=== PATIENT | male | born 1950 | race African-American/Black ===

== ENCOUNTER → 2020-05-15 | Day surgery (SDC) | payer MEDICARE ==
[2020-05-10 17:56] LABS: BASOPHILS % 0.4 % (0.0-1.0); EOSINOPHILS # (AUTO) 0.3 (0.0-0.4); EOSINOPHILS % 5.7 % (0.0-6.0); HEMATOCRIT 40.3 % (38.2-49.6); HEMOGLOBIN 12.9 g/dL (14.0-18.0); LYMPHOCYTES # (AUTO) 1.6 (1.0-3.2); LYMPHOCYTES % 35.7 % (18.0-39.1); MEAN CORPUSCULAR HEMOGLOBIN 29.6 pg (28-32); MEAN CORPUSCULAR VOLUME 92.4 fL (81-99); MONOCYTES # (AUTO) 0.3 (0.2-0.8); MONOCYTES % 7.4 % (4.4-11.3); NEUTROPHILS # (AUTO) 2.3 (2.1-6.9); NEUTROPHILS % 50.6 % (38.7-80.0); PLATELET COUNT 190 x10e3/uL (140-360); RED BLOOD COUNT 4.36 x10e6/uL (4.3-5.7); RED CELL DISTRIBUTION WIDTH 16.4 % (11.7-14.4)
--- NOTE | 2020-05-10 18:35 | Diagnostic Imaging Report ---
EXAMINATION: CHEST 2 VIEWS INDICATION: Preoperative evaluation of the lungs. COMPARISON: None FINDINGS: TUBES and LINES: None. LUNGS: Normal lung volumes. Lungs are clear. No consolidations. PLEURA: No pleural effusion or pneumothorax. HEART AND MEDIASTINUM: The cardiomediastinal silhouette is unremarkable. BONES AND SOFT TISSUES: No acute osseous lesion. Soft tissues are unremarkable. UPPER ABDOMEN: No free air under the diaphragm. IMPRESSION: Normal chest radiograph. Signed by: Sirena Muir MD on 05/10/2020 6:32 PM
[~2020-05-15] MED LIST: AMLODIPINE BESY10 MG PO; ASPIRIN81 MG PO; B&O 60MG R/S 60 MG SUPP PR ONE; BENAZEPRIL HCL10 MG PO; BUPIVACAINE HCL 0.5% INJ 30 ML VIAL INJ ONE; CLINDAMYCIN 600MG / 50ML 50 ML IV ONE; DEXAMETHASONE SOD PHOS INJ 4 MG/ML VIAL ONE; EPHEDRINE SULFATE INJ 50 MG/ML VIAL ONE; ETOMIDATE 2 MG/ML 10 ML INJ IV ONE; FENTANYL CITRATE/PF 100MCG/2 ML INJ ONE; FLOMAX0.4 MG PO; FUROSEMIDE INJ 10 MG/ML 4 ML VIAL ONE; GENTAMICIN 80MG/NS 100 ML 200 ML IV ONE; IOPAMIDOL 300MG/ML 50ML INFUS..BTL IV ONE; LIDOCAINE HCL 2% LOCAL INJ 5 ML SDV VIAL INJ ONE; MELOXICAM7.5 MG PO; MORPHINE SULFATE INJ 4 MG/ML INJ 1ML ONE; OMEPRAZOLE40 MG PO; ONDANSETRON HCL INJ 2MG/ML 2ML 2 MG/ML VIAL ONE; PIPER-TAZ 3.375 GM 50 ML ONE; PROPOFOL IV EMULSION 10 MG/ML 20 ML VIAL ONE; SEVOFLURANE INHAL SOLN 250 ML PEN BTL ONE
[2020-05-15 16:45] VITALS: BP 131/85
--- NOTE | 2020-06-03 09:47 | Operative Report ---
DATE OF PROCEDURE: 05/15/2020 SURGEON: Santino Zhou MD PREOPERATIVE DIAGNOSES: 1. Elevated PSA. 2. Obstructive benign prostatic hyperplasia. 3. Right hydrocele. POSTOPERATIVE DIAGNOSES: 1. Elevated PSA. 2. Obstructive benign prostatic hyperplasia. 3. Right hydrocele. OPERATIONS PERFORMED: 1. Transrectal sonography interpretation. 2. Interpretation for ultrasonographic guidance for needle biopsies. 3. Transrectal needle biopsies of the prostate (separate procedure performed for the elevated PSA). 4. Cystourethroscopy with left ureteral catheterization and partial retrograde ureteropyelography. 5. Inability to find right ureteral orifice. 6. Interpretation of retrograde ureteropyelography. 7. Supervision of fluoroscopy, no radiologist present. 8. Excision of large right hydrocele (separate procedure performed for the hydrocele). 9. Regional nerve block (separate procedure performed for postoperative pain control and not required for the actual performance of the surgery done under general anesthesia). ANESTHESIA: General. COMPLICATIONS: None. CLINICAL SUMMARY: Stephen Bishop is a 69-year-old man with the above preoperative diagnoses. He is brought for the above procedures. He is aware of the risks of bleeding, infection, injury to adjacent structures, need for additional procedures and elected to proceed. OPERATIVE PROCEDURE IN DETAIL: Informed consent was verified. Stephen Bishop was properly identified, taken to the operating room, placed on the operating table in supine position. Anesthesia was uneventfully begun. The patient was then carefully and gently repositioned in dorsal lithotomy position with all pressure points well padded. Transrectal sonography was performed. Interpretation of prostate ultrasound; prostate volume was measured at 140 mL. There was an obvious median lobe. There were some calcifications in the junction between the peripheral zone and transition zone. Seminal vesicles were unremarkable. The prostate capsule was smooth. With ultrasonographic guidance, needle biopsies of the prostate were taken. Biopsies were taken at [address] and sent in 6 different specimen cups. They were differentiated right versus left and base versus mid versus apex. Once this was performed, the patient's genitalia were prepared and draped in usual sterile fashion. Cystoscope sheath with the visual obturator in place was atraumatically inserted. The patient's urethra was guided unremarkable distal urethra through normal sphincteric region through the prostate bed, which was significant for kissing lateral lobes with a huge intravesical median lobe. Panendoscopy of the bladder revealed trabeculations and I found the left ureteral orifice. We cannulated and performed partial retrograde pyelograms. We could not find the right ureteral orifice as both ureteral orifices were being obstructed by this massive median lobe, which was acting like a tumor within the bladder. The patient's bladder was drained and cystoscope was withdrawn. The patient was then repositioned in supine position. His genitalia were prepared and draped in usual sterile fashion. A right scrotal incision was made and carried through all layers of the scrotum until we reached the tunica vaginalis. Once the tunica vaginalis was isolated, it was delivered. This was a very large hydrocele. We initially thought the patient had 2 right spermatoceles and the right hydrocele as well as a left varicocele based on ultrasonography. Operatively, we found one large multiloculated right hydrocele. No spermatoceles were identified. We incised the hydrocele anteriorly and then we resected the hydrocele sac. We everted the remnants of the sac and approximated them behind the epididymis. Marcaine with epinephrine was utilized to infiltrate the spermatic cord and performing a cord block. This was done for postoperative pain control and not required for the actual performance of the surgery, which was done under general anesthesia. Copious irrigation was performed and verified hemostasis. We placed a Energy drain through the dependent most portion of the hemiscrotum and secured to the skin with a chromic suture. The testis was placed back in its normal anatomical position. Marcaine was infiltrated around the incision. The patient's incision was then approximated in 2 layers utilizing running chromic suture. Excellent cosmetic result was achieved and a dramatic decompression of the right hemiscrotum was achieved as well. A belladonna and opium suppository were placed revealing a 50 g prostate, smooth, nonfluctuant without any nodules. There were no complications to the procedure. He tolerated the procedure well. Plan will be to follow the patient up to remove his drain and discuss the operative findings. The patient needs to have at least a stage 1, possibly a 2-stage transurethral resection of the prostate. We need to eliminate this massive median lobe acting like a tumor within the bladder. At that point, once we eliminate the median lobe, we would have a chance of performing proper retrograde pyelograms as we needed to do. Santino MD MARIANELA Zhou/EVERETTE /[id number]
== END | disposition home or self-care (01) ==
LOC: OR 08:20
PROVIDERS: ATTEND Urology
DX: N43.3 Hydrocele, unspecified (principal); I10 Essential (primary) hypertension; Z88.8 Allergy status to other drugs, medicaments and biological substances; Z79.82 Long term (current) use of aspirin; N40.1 Benign prostatic hyperplasia with lower urinary tract symptoms; N13.8 Other obstructive and reflux uropathy; Z01.810 Encounter for preprocedural cardiovascular examination; Z01.812 Encounter for preprocedural laboratory examination; Z01.818 Encounter for other preprocedural examination; Z11.59 Encounter for screening for other viral diseases
CPT/HCPCS: 36415; 52005; 55040; 55700; 71046; 74430; 76872; 76942; 85025; 88304; 88305; 93005; C1758; C1769; J1100; J1580; J1940; J2001; J2270; J2405; J2543; J2704; J3010; Q9967; U0002; 76998

== ENCOUNTER 2020-09-19 15:04 | Emergency (ER) | payer MEDICARE ==
[~2020-09-19] VITALS: Ht 175.3 cm; Wt 92.5 kg
[~2020-09-19 15:04] MED LIST changes: -B&O 60MG R/S 60 MG SUPP PR ONE; -BUPIVACAINE HCL 0.5% INJ 30 ML VIAL INJ ONE; -CLINDAMYCIN 600MG / 50ML 50 ML IV ONE; -DEXAMETHASONE SOD PHOS INJ 4 MG/ML VIAL ONE; -EPHEDRINE SULFATE INJ 50 MG/ML VIAL ONE; -ETOMIDATE 2 MG/ML 10 ML INJ IV ONE; -FENTANYL CITRATE/PF 100MCG/2 ML INJ ONE; -FUROSEMIDE INJ 10 MG/ML 4 ML VIAL ONE; -GENTAMICIN 80MG/NS 100 ML 200 ML IV ONE; -IOPAMIDOL 300MG/ML 50ML INFUS..BTL IV ONE; -LIDOCAINE HCL 2% LOCAL INJ 5 ML SDV VIAL INJ ONE; -MORPHINE SULFATE INJ 4 MG/ML INJ 1ML ONE; -ONDANSETRON HCL INJ 2MG/ML 2ML 2 MG/ML VIAL ONE; -PIPER-TAZ 3.375 GM 50 ML ONE; -PROPOFOL IV EMULSION 10 MG/ML 20 ML VIAL ONE; -SEVOFLURANE INHAL SOLN 250 ML PEN BTL ONE
--- NOTE | 2020-09-19 15:58 | Emergency Department Note ---
History of Present Illnes History of Present Illness Chief Complaint: General Medicine Complaints History of Present Illness This is a 70 year old male Chief Complaint Comment Patient in from Dr. Zhou's office via EMS with reports of hematuria and a near syncopal episode. Patient reports that he has been noticing some blood in his urine that started 3 days ago but got progressively worse so he made the appointment with Dr. Zhou. In the office, a madison catheter was placed and upon irrigation of the madison the patient started to pass out. Dr. Zhou reported it is a vasovagal response. Patient is alert and oriented in triage with no further complaints of dizziness. Patient is not in any obvious distress. Historian: Patient, Bike Technician/EMS Arrival Mode: [place] Required: No Onset (how long ago): hour(s) Location: None Quality: Near syncope Radiation: Reports non-radiation Severity: mild Onset quality: sudden Duration (how long): hour(s) (Seconds) Timing of current episode: rare Progression: resolved Chronicity: new Context: Reports recent surgery; Denies recent illness Relieving factors: none Exacerbating factors: none Associated symptoms: Reports denies other symptoms Treatments prior to arrival: none Past Medical/Family History Physician Review I have reviewed the patient's past medical and family history. Any updates have been documented here. Past Medical History Recent Fever: No Clinical Suspicion of Infectio: No New/Unexplained Change in Ment: No Past Medical History: Hypertension Other Medical History: BPH Past Surgical History: Back Surgery Other Surgery: 2nd finger on left hand TURP Social History Smoking Cessation: Never Smoker Counseling Performed: No Alcohol Use: Occasional Any Illegal Drug Use: No Other Any Pre-Existing Lines (PICC,: No Review of Systems Review of Systems Constitutional: Reports no symptoms EENTM: Reports no symptoms Cardiovascular: Reports no symptoms Respiratory: Reports no symptoms Gastrointestinal: Reports no symptoms Genitourinary: Reports hematuria Musculoskeletal: Reports no symptoms Integumentary: Reports no symptoms Neurological: Reports as per HPI Psychological: Reports no symptoms Endocrine: Reports no symptoms Hematological/Lymphatic: Reports no symptoms Physical Exam Related Data Allergies: Coded Allergies: iodine (Verified Allergy, Unknown, HIVES, 05/15/20) Triage Vital Signs Vital Signs Date Time Temp Pulse Resp B/P (MAP) Pulse Ox O2 Delivery O2 Flow Rate FiO2 09/19/20 15:29 98.9 75 17 145/74 100 Room Air Vital signs reviewed: Yes Physical Exam CONSTITUTIONAL Constitutional: Present well-developed, Present well-nourished HENT HENT: Present normocephalic, Present atraumatic, Present oropharynx clear/moist, Present nose normal HENT L/R: Present left ext ear normal, Present right ext ear normal EYES Eyes: Reports PERRL, Reports conjunctivae normal NECK Neck: Present ROM normal PULMONARY Pulmonary: Present effort normal, Present breath sounds normal CARDIOVASCULAR Cardiovascular: Present regular rhythm, Present heart sounds normal, Present capillary refill normal, Present normal rate GASTROINTESTINAL Abdominal: Present soft, Present nontender, Present bowel sounds normal GENITOURINARY Genitourinary: Present other (Madison in place, flowing with out difficulty. Blood tinged urine) SKIN Skin: Present warm, Present dry MUSCULOSKELETAL Musculoskeletal: Present ROM normal NEUROLOGICAL Neurological: Present alert, Present oriented x 3, Present no gross motor or sensory deficits PSYCHOLOGICAL Psychological: Present mood/affect normal, Present judgement normal Results Laboratory Lab results reviewed: Yes Procedures 12 Lead ECG Interpretation ECG Interpretation : [place] Peeler: Interpreted by ED physician Rhythm: sinus rhythm Rate: normal QRS axis: normal ST segments normal: Yes T waves normal: Yes Clinical Impression: non-specific ECG Assessment & Plan Medical Decision Making MDM 70 y.o M presents for syncopal episode at Dr. Zhou's office while irrigating bladder. Patient has no complaints at this time. EKG benign, CBC shows mild anemia but need for transfusion. Floey is flowing with out difficulty. Patient wishes to leave. Doubt emergent process. He will f/u w/ Dr. Zhou and he is appropriate for DC. Diagnosis favors vasovagal syncope from bladder irrigation. Assessment & Plan Final Impression: (1) Vasovagal syncope Depart Disposition: HOME, SELF-CARE Last Vital Signs Date Time Temp Pulse Resp B/P (MAP) Pulse Ox O2 Delivery O2 Flow Rate FiO2 09/19/20 15:29 98.9 75 17 145/74 100 Room Air Home Meds Reported Medications Tamsulosin Hcl* (FLOMAX*) 0.4 Mg Cap, 0.4 MG PO DAILY@1700, #30 CAP 05/13/20 Omeprazole (OMEPRAZOLE) 40 Mg Capsule., PO DAILY 05/13/20 Meloxicam (MELOXICAM) 7.5 Mg Tablet, 15 MG PO DAILY, #30 TAB 05/13/20 Benazepril Hcl (BENAZEPRIL HCL) 10 Mg Tablet, 20 MG PO DAILY, #30 TAB 05/13/20 Amlodipine Besylate (AMLODIPINE BESYLATE) 10 Mg Tablet, 10 MG PO DAILY, #30 TAB 05/13/20 Aspirin (ASPIRIN) 81 Mg Tab.chew, 81 MG PO DAILY 05/13/20 EL GEE MD Sep 19, 2020 15:58
--- OUTSIDE RECORDS SUMMARY | 2020-09-19 16:07 | XMS REPORT | Clinical Summary ---
Author Author [facility] Address Unknown Phone Unavailable Care Team Providers Care Dinkey Mechanic Name Role Phone PCP Unavailable Allergies No Known Allergies Medications End Date Status Medication Sig Dispensed Refills Start Date Active hydrochlorothiazide Take by mouth 0 (MICROZIDE) 12.5 mg daily. capsule Active verapamil (CALAN-SR) 240 Take 240 mg 0 MG CR tablet by mouth every morning . Active oxybutynin (DITROPAN) 5 Take 1 tablet 90 tablet 0 MG tablet (5 mg total) 0 by mouth 3 (three) times daily For bladder spasms. Active polyethylene glycol Take 17 g by 14 each 0 06/12 (GLYCOLAX) 17 gram packet mouth daily 0 as needed (Constipation ). Active HYDROcodone-acetaminophen Take 1 tablet 12 tablet 0 (NORCO 5-325) 5-325 mg by mouth 0 per tablet every 4 (four) hours as needed for Pain. Max Daily Amount: 6 tablets Active Problems Problem Noted Date Hematuria, unspecified type 06/10/2020 Rectal bleeding 08/12/2013 Encounters Care Team Description Date Type Specialty Juan Carlos Botello MD Adio, Titilola R., MD Lin, Fang-Ying, MD Hematuria, unspecified type (Primary Dx) ; Urinary tract infection with hematuria, site unspecified; Benign prostatic hyperplasia with lower urinary tract symptoms, symptom details unspecified; Essential hypertension 06/10/2020 [facility] Internal Nv dicine - Encounter 06/12/2020 06/10/2020 Travel after 09/19/2019 Social History Date Tobacco Use Types Packs/Day Years Used Never Smoker Smokeless Tobacco: Never Used Drinks/Week oz/Week Comments Alcohol Use SOCIALLY No Alcohol Habits Answer Date Recorded How often do you have a drink containing alcohol? Never 06/10/2020 How many drinks containing alcohol do you have on No t asked a typical day when you are drinking? How often do you have six or more drinks on one Not asked occasion? Sex Assigned at Date Recorded Not on file Last Filed Vital Signs Reading Time Taken Comments Vital Sign 105/56 06/12/2020 3:06 PM CDT Blood Pressure 65 06/12/2020 3:06 PM CDT Pulse 36.4 C (97.6 F) 06/12/2020 3:06 PM CDT Temperature 20 06/12/2020 3:06 PM CDT Respiratory Rate 98% 06/12/2020 3:06 PM CDT Oxygen Saturation - - Inhaled Oxygen Concentration 87.5 kg (193 lb) 06/12/2020 7:08 PM CDT Weight 175.3 cm (5' 9") 06/10/2020 10:28 AM CDT Height 28.5 06/10/2020 10:28 AM CDT Body Mass Index Plan of Treatment Health Maintenance Due Date Last Done Comments PNEUMOCOCCAL 65+ YRS (1 2014 of 1 - [id number]) INFLUENZA VACCINE (#1) 2020 COLON CANCER SCREENING 08/13/2023 08/13/2013 COLONOSCOPY Procedures Comments Procedure Name Priority Date/Time Associated Diag nosis CBC W/PLT COUNT & AUTO Routine 06/12/2020 DIFFERENTIAL 4:35 AM CDT CBC W/PLT COUNT & AUTO Routine 06/12/2020 DIFFERENTIAL 4:35 AM CDT PHOSPHORUS Routine 06/12/2020 4:35 AM CDT MAGNESIUM Routine 06/12/2020 4:35 AM CDT BASIC METABOLIC PANEL (7) Routine 06/12/2020 4:35 AM CDT TRANSFUSION SERVICE 06/11/2020 REPORT - SCAN 6:12 PM CDT CBC W/PLT COUNT & AUTO Routine 06/11/2020 DIFFERENTIAL 4:25 AM CDT CBC W/PLT COUNT & AUTO Routine 06/11/2020 DIFFERENTIAL 4:25 AM CDT PHOSPHORUS Routine 06/11/2020 4:25 AM CDT MAGNESIUM Routine 06/11/2020 4:25 AM CDT BASIC METABOLIC PANEL (7) Routine 06/11/2020 4:25 AM CDT SARS-COV2/RT-PCR ([facility] & STAT 06/10/2020 REF LABS) 8:[address] ABDOMEN/PELVIS WITH IV STAT 06/10/2020 CONTRAST 12:56 PM CDT COMPREHENSIVE METABOLIC STAT 06/10/2020 PANEL 10:55 AM CDT CBC W/PLT COUNT & AUTO STAT 06/10/2020 DIFFERENTIAL 10:21 AM CDT TYPE AND SCREEN, STAT 06/10/2020 AUTOMATED 10:21 AM CDT CBC W/PLT COUNT & AUTO STAT 06/10/2020 DIFFERENTIAL 10:21 AM CDT URINALYSIS W/ MICROSCOPIC STAT 06/10/2020 9:56 AM CDT URINE CULTURE Routine 06/10/2020 9:56 AM CDT after 09/19/2019 Results * CBC with platelet count + automated diff (06/12/2020 4:35 AM CDT) Only the most recent of 3 results within the time period is included. WBC 6.7 3.5 - 10.5 K/L [facility] RBC 2.76 (L) 4.63 - 6.08 M/L [facility] Hemoglobin 8.5 (L) 13.7 - 17.5 GM/DL [facility] Hematocrit 25.9 (L) 40.1 - 51.0 % [facility] MCV 93.8 (H) 79.0 - 92.2 fL [facility] MCH 30.8 25.7 - 32.2 pg [facility] MCHC 32.8 32.3 - 36.5 GM/DL [facility] RDW 15.9 (H) 11.6 - 14.4 % [facility] Platelets 174 150 - 450 K/CU MM [facility] MPV 9.5 9.4 - 12.4 fL [facility] nRBC 0 0 - 0 /100 WBC [facility] % Neutros 62 % [facility] % Lymphs 22 % [facility] % Monos 10 % [facility] % Eos 5 % [facility] % Baso 0 % [facility] # Neutros 4.19 1.78 - 5.38 K/L [facility] # Lymphs 1.48 1.32 - 3.57 K/L [facility] # Monos 0.65 0.30 - 0.82 K/L [facility] # Eos 0.36 0.04 - 0.54 K/L [facility] # Baso 0.02 0.01 - 0.08 K/L [facility] Immature 0 0 - 1 % [facility] Specimen Blood Performing Organization Address City/[facility] Ph one Number [address] [facility] * Phosphorus (06/12/2020 4:35 AM CDT) Only the most recent of 2 results within the time period is included. Phosphorus 2.7 2.3 - 4.7 mg/dL [facility] Specimen Blood Narrative Performed At [employer] KELSEY Causey [facility] Performing Organization Address City/[facility]/Zipcode Ph one Number [address] [facility] * Magnesium (06/12/2020 4:35 AM CDT) Only the most recent of 2 results within the time period is included. Magnesium 1.7 1.6 - 2.6 mg/dL [facility] Specimen Blood Narrative Performed At [employer] ID - CACHORRO Causey [facility] Performing Organization Address [facility] one [address] [facility] * Basic metabolic panel (06/12/2020 4:35 AM CDT) Only the most recent of 2 results within the time period is included. Sodium 141 136 - 145 meq/L [facility] Potassium 3.9 3.5 - 5.1 meq/L [facility] Chloride 109 (H) 98 - 107 meq/L [facility] CO2 26 22 - 29 meq/L [facility] BUN 15 7 - 21 mg/dL [facility] Creatinine 0.93 0.57 - 1.25 mg/dL [facility] Glucose 95 70 - 105 mg/dL [facility] Calcium 8.6 8.4 - 10.2 mg/dL [facility] EGFR 97Comment: ESTIMATED GFR IS mL/min/1.73 sq m [facility] NOT ACCURATE CREATININE [facility] CLEARANCE IN PREDICTING [facility] CENTER GLOMERULAR FILTRATION RATE. ESTIMATED GFR IS NOT APPLICABLE FOR DIALYSIS PATIENTS. Specimen Blood Narrative Performed At [employer] ID - CACHORRO Causey [facility] Performing Organization Address [facility] one [address] [facility] * TRANSFUSION SERVICE REPORT - SCAN (06/11/2020 6:12 PM CDT) Narrative Performed At This result has an attachment that is n ot available. * SARS-CoV2/RT-PCR (Symptomatic ONLY) (06/10/2020 8:36 PM CDT) SARS-COV2/RT-PC Negative Not Detected, [facility] R Negative, See [facility] external report for [facility] linked test SARS-COV-2 [facility] PERFORMING LAB [facility] Specimen Other - Nasopharyngeal wall structure (body structure) Narrative Performed At Negative results do not preclude SARS-C oV-2 infection and should not be used as [facility] the sole basis for patient management decisions. Nega tive results must be [facility] combined with clinical observations, pa tient history, and epidemiological information. A false negative result ma y occur if a specimen is improperly collected, transported or handled. The limit of detection for this assay i s 250 copies/mL. This SARS CoV-2 test is a rapid, real-t joseph RT-PCR test intended for the qualitative detection of nucleic acid f rom SARS-CoV-2 in a nasopharyngeal swab specimen collected from individuals peña pected of COVID-19 by their healthcare provider. This test has not been Food and Drug Ad ministration (FDA) cleared or approved and has been authorized by FDA under an Emergency Use Authorization (EUA). This EUA will be effective until the declara tion that circumstances exist justifying the authorization of the emergency use of in vitro diagnostic tests for detection and/or diagnosis of COVID-19 is terminated under Section 564(b)(2) of the Act or the EUA is revoked under Sec tion 564(g) of the Act. Fact Sheet for Healthcare Providers: https://www.[employer]/Documents/Xpert%20Xpress%20SARS%20CoV-2/Fact%20Sheets/30 23802%24AYUB-GNT-6%20HEALTHCARE%20PROV IDERS%20FACT%20SHEET.pdf Fact Sheet for Healthcare Patients: https://www.[employer]/Documents/Xpert%20Xpress%20SARS%20CoV-2/Fact%20Sheets/30 2-3801%18WPPG-MRV-7%20PATIENT%20FACT%20 SHEET.pdf Performing Laboratory: [facility] [address] [place] [address] Performing Organization Address City/State/Zipcode Ph one Number [facility] [address] [place], [place] [address] * CT abdomen pelvis with IV contrast (06/10/2020 12:56 PM CDT) Specimen Narrative Performed At FINAL REPORT Halldis CT of the abdomen and pelvis, with cont rast Clinical History: generalized abdomin al pain, hematuria Technique: CT of the abdomen and pelvis is performed with intravenous contrast administration. This exam wa s performed according to our departmental dose optimization program which includes automated exposure control, adjustment of the mA and/or kV according to patient's size and/or use of iterative reconstructive technique. Comparison Film: None Discussion: Visualized lower thorax is unremarkable . There are multiple hypodensities in raul er, of varying sizes, the majority are subcentimeter, likely to r epresent cysts and/or biliary hamartomas. The largest cyst is located at the hepatic dome measuring 2.2 cm. No biliary ductal dilatation. G allbladder is normal. Spleen, pancreas and adrenal glands are normal. There is mild to moderate bilateral hyd ronephrosis and hydroureter. There are a few nonobstructive stones w ithin the left kidney, measuring up to 4 mm. Bladder is distended, and contains inte rnal hyperdensity that likely represents hemorrhage, although an unde rlying lesion cannot be excluded. Prostate gland is markedly en larged. No bowel obstruction, or abnormal bowel wall thickening. Normal appendix. No ascites, free air, or lymphadenopath y. Osseous structures demonstrate degenerative changes. There is severe right hip osteoarthritis. Impression: Markedly distended bladder, containing heterogeneous hyperdensity centrally, likely representing hematoma , note the presence of an underlying mass lesion cannot be exclud ed based on this exam. [id number] bilateral hydronephros is and hydroureter. There are several small nonobstructive stones wit hin the left kidney. Severe right hip osteoarthritis. Signed: Sara Logan MD Report Verified Date/Time: 06/10/2020 13:12:59 Reading Location: [facility] C0X [facility] nsult Reading Room Procedure Note Interface, External Ris In - 06/10/2020 1:15 PM CDT FINAL REPORT CT of the abdomen and pelvis, with contrast Clinical History: generalized abdominal pain, hematuria Technique: CT of the abdomen and pelvis is performed with intravenous contrast administration. This exam was performed according to our departmental dose optimization program which includes automated exposure control, adjustment of the mA and/or kV according to patient's size and/or use of iterative reconstructive technique. Comparison Film: None Discussion: Visualized lower thorax is unremarkable. There are multiple hypodensities in liver, of varying sizes, the majority are subcentimeter, likely to represent cysts and/or biliary hamartomas. The largest cyst is located at the hepatic dome measuring 2.2 cm. No biliary ductal dilatation. Ga llbladder is normal. Spleen, pancreas and adrenal glands are normal. There is mild to moderate bilateral hydronephrosis and hydroureter. There are a few nonobstructive stones within the left kidney, measuring up to 4 mm. Bladder is distended, and contains internal hyperdensity that likely represents hemorrhage, although an underlying lesion cannot be excluded. Prostate gland is markedly enlarged. No bowel obstruction, or abnormal bowel wall thickening. Normal appendix. No ascites, free air, or lymphadenopathy. Osseous structures demonstrate degenerative changes. There is severe right hip osteoarthritis. Impression: Markedly distended bladder, containing heterogeneous hyperdensity centrally, likely representing hematoma, note the presence of an underlying mass lesion cannot be excluded based on this exam. [id number] bilateral hydronephrosis and hydroureter. There are several small nonobstructive stones within the left kidney. Severe right hip osteoarthritis. Signed: Sara Logan MD Report Verified Date/Time: 06/10/2020 13:12:59 Reading Location: [facility] B1 [id number] [facility] Consult Reading Room Performing Organization Address City/State/Zipcode Ph one Number GE RIS * Comprehensive metabolic panel (06/10/2020 10:55 AM CDT) Protein, Total 7.2Comment: Specimen slightly 6.0 - 8.3 gm/dL [facility] Albumin 3.8Comment: Specimen slightly 3.5 - 5.0 g/dL [facility] Alkaline 67 40 - 150 U/L [facility] Total Bilirubin 0.3Comment: Specimen slightly 0.2 - 1.2 mg/dL [facility] Sodium 135 (L) 136 - 145 meq/L [facility] Potassium 4.0Comment: Specimen slightly 3.5 - 5.1 meq/L [facility] Chloride 105 98 - 107 meq/L [facility] CO2 25 22 - 29 meq/L [facility] BUN 21 7 - 21 mg/dL [facility] Creatinine 1.10Comment: Specimen slightly 0.57 - 1.25 mg/ dL [facility] Glucose 130 (H) 70 - 105 mg/dL [facility] Calcium 8.8 8.4 - 10.2 mg/dL [facility] AST 22Comment: Specimen slightly 5 - 34 U/L [facility] ALT 11Comment: Specimen slightly 6 - 55 U/L [facility] EGFR 80Comment: ESTIMATED GFR IS mL/min/1.73 sq m [facility] NOT ACCURATE CREATININE [facility] CLEARANCE IN PREDICTING [facility] CENTER GLOMERULAR FILTRATION RATE. ESTIMATED GFR IS NOT APPLICABLE FOR DIALYSIS PATIENTS. Specimen Blood Narrative Performed At [employer] ID - DB [facility] Performing Organization Address City/[facility] Cent[facility]ode Ph one Number [facility] [address] [place], [place] [address] [facility] * Type and screen, automated ([facility] and [facility] only) (06/10/2020 10:21 AM CDT) ABO/RH O POSITIVE [facility] Ab Scrn NEGATIVE [facility] Specimen Blood Performing Organization Address City/State/Zipcode Ph one Number [facility] [address] [place] [address] [facility] * Urinalysis w/Microscopic (06/10/2020 9:56 AM CDT) Color, UA Dark Red [facility] Clarity, UA Cloudy [facility] Specific 1.031 1.001 - 1.035 [facility] Ransom, [facility] pH, UA 8.0 5.0 - 8.0 [facility] Protein, UA 300 mg/dL (A) Negative [facility] Glucose, UA 100 mg/dL (A) Negative [facility] Ketones, UA 10 mg/dL (A) Negative [facility] Bilirubin, UA Positive (A) Negative [facility] Blood, UA Large (A) Negative [facility] Nitrite, UA Positive (A) Negative [facility] Leukocytes, UA Small (A) Negative [facility] Urobilinogen, 12.0 (H) 0.2 - 1.0 mg/dL [facility] RBC, UA 1,000 /HPF [facility] WBC, UA 0 /HPF [facility] Specimen Source [facility] Specimen Urine Narrative Performed At [employer] [facility] Performing Organization Address City/State/Zipcode Ph one Number [address] [facility] * Urine culture (06/10/2020 9:56 AM CDT) Result No growth [facility] Specimen Urine - Urine specimen collection, clean catch (procedure) Performing Organization Address City/State/[facility] Centercode Ph one Number [facility] [address] [place], [place] [address] [facility] after 09/19/2019 Insurance Type Payer Benefit Subscriber ID Effective Phone Address Plan / Dates Group Maps Contracted [employer] C[employer]NA [id number] 2019-P [employer] karissa [employer] ALL Advance Directives For more information, please contact: [phone] Date Inactivated Comments Code Status Date Activated 06/12/2020 10:08 PM Full Code 06/10/2020 2:48 PM This code status was determined by: Patient 08/14/2013 6:45 PM All possible means of suppor t, including: cardiac massage, mechanical ventilation, and defibrillation will be used to support life. Code ONE 08/12/2013 7:17 AM
--- OUTSIDE RECORDS SUMMARY | 2020-09-19 16:07 | XMS REPORT | Continuity of Care Document ---
Author Author [facility] t Organization [facility] Address [address] [place] [address] Phone Unavailable Care Team Providers [facility] Teacher Name Role Phone GERARDO LINDQUIST Attphys Unavailable Juan Carlos Botello MD Attphys Carol Marina MD Attphys Heather HAYNES, Drake Attphys JUAN CARLOS BOTELLO Attphys Unavailable NERISSA FARLEY Attphys Unavailable GERARDO LINDQUIST Admphys Unavailable Carol MARINA Admphys Unavailable Payers Payer Name Policy Type Policy Number Effective Date Expiration Date Berna [employer] [id number] Cont[facility] [id number] 2019 00:00:00 [facility] Problems Condition Name Condition Details Condition Category Status Onset Date Resolution Date Last Treatment Date Treating Clinician Comments Source Hematuria, unspecified type Hematuria, unspecified type Disease Active 2020-06-10 00:00:00 [facility] Rectal bleeding Rectal bleeding Disease Active 2013-08-12 00:00:00 [facility] Allergies, Adverse Reactions, Alerts Allergy Name Allergy Type Status Severity Reaction(s) Onset Date Inacti ve Date Treating Clinician Comments Source No Known Allergies DA Active U 2018-08-16 00:00:00 [facility] No Known Allergies DA Active U 2018-08-02 00:00:00 [facility] Social History Social Habit Start Date Stop Date Quantity Comments Source History SDOH Alcohol Std Drinks [facility] History SDOH Alcohol Binge [facility] Sex Assigned At [facility] Tobacco use and exposure 2020-06-10 00:00:00 2020-06-10 00:00:00 Neri avila used [facility] Alcohol intake 2020-06-10 00:00:00 2020-06-10 00:00:00 Current non-drinker of alcohol (finding) [facility] Jorje avila History SDOH Alcohol Frequency 2020-06-10 00:00:00 2020-06-10 00:00:0 0 1 [facility] Alcohol Comment 2013-08-12 00:00:00 2013-08-12 00:00:00 SOCIALLY [facility] Smoking Status Start Date Stop Date Source Never smoker [facility] Medications Ordered Medication Name Filled Medication Name Start Date Stop Da te Current Medication? Ordering Clinician Indication Dosage Frequency Signature (SIG) Comments Components Source hydrochlorothiazide (MICROZIDE) 12.5 mg capsule 2020-06-12 20:08 :21 Yes QD Take by mouth daily. [facility] verapamil (CALAN-SR) 240 MG CR tablet 2020-06-12 20:08:21 Y es 240mg QD Take 240 mg by mouth every morning . [facility] oxybutynin (DITROPAN) 5 MG tablet 2020-06-12 00:00:00 Ye s 5mg Q.[id number] Take 1 tablet (5 mg total) by mouth 3 (t hree) times daily For bladder spasms. [facility] polyethylene glycol (GLYCOLAX) 17 gram packet 2020-06-12 00:00:0 0 Yes 17g Take 17 g by mouth daily as needed (Constipation). [facility] HYDROcodone-acetaminophen (NORCO 5-325) 5-325 mg per tablet 2020-06-12 00:00:00 Yes 1{tbl} Take 1 tab let by mouth every 4 (four) hours as needed for Pain. Max Daily Amount: 6 tablets [facility] Vital Signs Vital Name Observation Time Observation Value Comments Source Body weight 2020-06-12 19:08:00 87.544 kg [facility] BMI 2020-06-12 19:08:00 28.50 kg/m2 [facility] Systolic blood pressure 2020-06-12 15:06:00 105 mm[Hg] [facility] Diastolic blood pressure 2020-06-12 15:06:00 56 mm[Hg] [facility] Heart rate 2020-06-12 15:06:00 65 /min [facility] Body temperature 2020-06-12 15:06:00 36.44 Lisa [facility] Respiratory rate 2020-06-12 15:06:00 20 /min [facility] Oxygen saturation in Arterial blood by Pulse oximetry 06-12 15:06:00 98 [facility] 2020-06-10 10:28:00 175.3 cm [facility] Procedures Procedure Date / Time Performed Performing Clinician [facility] e BASIC METABOLIC PANEL () 2020-06-12 04:35:00 Adio, Lynda Medina [facility] MAGNESIUM 2020-06-12 04:35:00 Adio, Lynda Medina [facility] PHOSPHORUS 2020-06-12 04:35:00 Adio, Lynda Medina [facility] CBC W/PLT COUNT & AUTO DIFFERENTIAL 2020-06-12 04:35:00 Adio, Gallito Medina [facility] TRANSFUSION SERVICE REPORT - SCAN 2020-06-11 18:12:46 Provid er, Default Scanning [facility] BASIC METABOLIC PANEL (7) 2020-06-11 04:25:00 Adio, Lynda Medina [facility] MAGNESIUM 2020-06-11 04:25:00 Adio, Lynda Medina [facility] PHOSPHORUS 2020-06-11 04:25:00 Adio, Lynda [facility] CBC W/PLT COUNT & AUTO DIFFERENTIAL 2020-06-11 04:25:00 Gallito Marina [facility] SARS-COV2/RT-PCR (HS & REF LABS) 2020-06-10 20:36:00 Anderson Ag [facility] CT ABDOMEN/PELVIS WITH IV CONTRAST 2020-06-10 12:56:00 [facility] COMPREHENSIVE METABOLIC PANEL 2020-06-10 10:55:00 [facility] TYPE AND SCREEN, AUTOMATED 2020-06-10 10:21:00 [facility] CBC W/PLT COUNT & AUTO DIFFERENTIAL 2020-06-10 10:21:00 [facility] URINE CULTURE 2020-06-10 09:56:00 Chikis Haley [facility] URINALYSIS W/ MICROSCOPIC 2020-06-10 09:56:00 Myles Burns aelondon [facility] Plan of Care Planned Activity Planned Date Details Comments Source Future Scheduled Test 2023-08-13 00:00:00 Screening for juliana gnant neoplasm of colon (procedure) [code = 696131834] [facility] Future Scheduled Test 2020-07-02 00:00:00 INFLUENZA VACCINE (#1) [code = INFLUENZA VACCINE (#1)] [facility] Future Scheduled Test 2014 00:00:00 PNEUMOCOCCAL 65+ Y RS (1 of 1 - [id number] PCV13) [code = PNEUMOCOCCAL 65+ YRS (1 of 1 - [id number] PCV13)] [facility] Results Test Description Test Time Test Comments Results Result Comments Source CT ABDOMEN/PELVIS WO 2020-08-23 14:33:00 [facility] 1950 Sex: M [facility] [address] [address] Patient Name: MARIANNA BISHOP MR #: [id number] : 1950 Age/Sex: 70/M Req #: [id number] Adm Physician: GERADRO LINDQUIST MD Ordered by: NERISSA FARLEY MD Report #: [id number] Location: MED/SURG Room/Bed: [facility] Procedure: [id number] CT/CT ABDOMEN/PELVIS WO Exam Date: 08/23/20 Exam Time: 1330 REPORT STATUS: Signed CT ABDOMEN/PELVIS WO HISTORY: Questionable stone noted on ultrasound COMPARISON: None. TECHNIQUE: On a multirow-detector CT scanner, a volumetric scan was performed through the abdomen and pelvis without the administration of intravenous contrast. Dose modulation, iterative reconstruction, and/or weight-based adjustment of the mA/kV was utilized to reduce the radiation dose to as low as reasonably achievable. FINDINGS: Lack of intravenous contrast compromises evaluation of perfusion and for isodense lesions. Lung bases: Small pericardial effusion, likely within physiologic normal limits Liver: Multiple hepatic cysts, largest 25 mm, and additional hypodensities too small to characterize, likely additional cysts in the absence of any primary malignancy or risk factors for hepatic malignancy. Gallbladder and bile ducts: Unremarkable. Spleen: Unremarkable. Pancreas: Unremarkable. Adrenals: Bilateral adrenal thickening without discrete nodule, query adrenal hyperplasia Kidneys and ureters: Multiple small left renal calculi, largest 5 mm at the lower pole. Mild left pelvocaliectasis and mild prominence of the bilateral ureters without definite hydronephrosis. Bowel: Nondilated bowel no wall thickening. Normal appendix. Moderate stool throughout the colon. Bladder: Severe irregular urinary bladder wall thickening, with a mass or blood clot at the bladder neck Reproductive organs: Marked prostatomegaly, 65 mm in transverse dimension Lymph nodes: No lymphadenopathy Peritoneum: Fat stranding and small free fluid about the urinary bladder, particularly at the dome on the right, and small amount of free fluid extends along the bilateral pelvic sidewall into the paracolic gutters inferiorly and along the bilateral ureters inferiorly, and into the presacral space Vessels: Moderate atherosclerotic calcifications Abdominal wall: Fat and sigmoid colon containing left inguinal hernia. No evidence of bowel obstruction. Bones: Severe degenerative disc disease in the lower lumbar spine with large posterior disc osteophyte complexes most notably at L4-5. Status post posterior decompression of L4-L5. Ossification along the anterior aspect of the thecal sac at L4-L5, at least moderately narrowing the thecal sac. Marked narrowing of the neural foramina bilaterally at L3-4 through L5-S1. IMPRESSION: Lack of intravenous contrast compromises evaluation of perfusion and for isodense lesions. 1. Multiple nonobstructive left renal calculi up to 5 mm. Mild prominence of the bilateral ureters and mild left pelvocaliectasis without significant hydroureteronephrosis bilaterally. 2. Severe and irregular urinary bladder wall thickening, with a mass versus clot at the bladder neck. Correlate with recent cystoscopy. 3. Fat stranding and small free fluid about the urinary bladder, extending into the pelvis and along the bilateral ureters inferiorly, correlate clinically if there is any concern for urine leak or other cause of inflammatory changes in the pelvis 4. Severe degenerative changes in the lower lumbar spine. 5. Sigmoid colon extends into a left inguinal hernia. No evidence for bowel obstruction Signed by: Gage Allred MD on 08/23/2020 2:56 PM Dictated By: KT ALLRED MD 55 Transcribed By: CATRACHO on 08/23/201455 COPY TO: NERISSA FARLEY MD RENAL RETROPERITONEAL COMP 2020-08-22 15:02:00 [facility] : 1950 Sex: M [facility] [address] [address] Patient Name: MARIANNA BISHOP MR #: [id number] : 1950 Age/Sex: 70/M Req #: [id number] Adm Physician: GERARDO LINDQUIST MD Ordered by: NERISSA FARLEY MD Report #: [id number] Location: MED/SURG Room/Bed: [facility] Procedure: [id number] US/US RENAL RETROPERITONEAL COMP Exam Date: 08/22/20 Exam Time: 1400 REPORT STATUS: Signed EXAM: Renal Ultrasound INDICATION: [id number] NEVER SAW U/O'S. R/O HYDRO. CALL ME IF HYDRO COMPARISON: None TECHNIQUE: Transverse and longitudinal images of the kidneys and bladder were obtained. FINDINGS: Right Kidney: Length: 11.3 cm Appearance: Normal echogenicity. Collecting system: No hydronephrosis Stones: Questionable echogenic nonshadowing stone within the interpolar region of the right kidney measuring up to 8 mm versus ultrasound artifact. Cyst/Mass: None Left Kidney: Length: 11.7 cm Appearance: Normal echogenicity. Collecting system: No hydronephrosis Stones: None Cyst/Mass: None Bladder: Decompressed by a Armenta catheter IMPRESSION: Negative for hydronephrosis. Question nonobstructing nonshadowing 8 mm calculus in the interpolar region of the right kidney versus artifact. Signed by: Pete Lemons MD on 08/22/2020 3:04 PM Dictated By: PETE LEMONS MD 03 Transcribed By: CATRACHO on 08/22/201503 COPY TO: NERISSA FARLEY MD CYSTOGRAM 3+VIEWS 2020 14:50:00 [facility] : 1950 Sex: M [address] [address] Patient Name: MARIANNA BISHOP MR #: [id number] : 1950 Age/Sex: 70/M Req #: [id number] [facility] Physician: GERARDO LINDQUIST MD Ordered by: NERISSA FARLEY MD Report #: [id number] Location: [facility] Room/Bed: [facility]- Procedure: [id number] DX/CYSTOGRAM 3+VIEWS Exam Date: 08/21/20 Exam Time: 1059 REPORT STATUS: Signed TECHNIQUE: Intraoperative image(s) IMPRESSION: Indicative equipment was utilized for a procedure performed in the operating room. No interpretation was requested. Please refer to the operative note and PACS for more details regarding the procedure and findings. Signed by: Bernardino Esteban MD on 2020 2:50 PM Dictated By: BERNARDINO ESTEBAN DO 48 Transcribed By: CATRACHO on 08/21/201449 COPY TO: NERISSA FARLEY MD Urine culture 2020-06-12 10:02:00 Test Item Result (test code = 6463-4) No growth [facility] [id number] 10:02:00* Test Item Value Reference Range Interpretation Comments CULTURE (BEAKER) (test code = 1095) No growth Basic metabolic [id number] 05:36:00* Test Item Value Reference Range Interpretation Comments Sodium (test code = 2951-2) 141 meq/L 136-145 Potassium (test code = 2823-3) 3.9 meq/L 3.5-5.1 Chloride (test code = 2075-0) 109 meq/L 98-107 H CO2 (test code = 8-9) 26 meq/L 22-29 BUN (test code = 3094-0) 15 mg/dL 7-21 Creatinine (test code = 2160-0) 0.93 mg/dL 0.57-1.25 Glucose (test code = 2345-7) 95 mg/dL 70-105 Calcium (test code = 48844-9) 8.6 mg/dL 8.4-10.2 EGFR (test code = 04493-9) 97 mL/min/1.73 sq m ESTIMATED GFR IS NOT ACCURATE CREATININE CLEARANCE IN PREDICTING GLOMERULAR FILTRATION RATE. ESTIMATED GFR IS NOT APPLICABLE FOR DIALYSIS PATIENTS. ALFREDA (test code = ALFREDA) Pressfitter ID - CACHORRO M Lab Interpretation (test code = 46502-3) Abnormal [facility]esium2020-08-12 05:36:00* Test Item Value Reference Range Interpretation Comments Magnesium (test code = 28834-2) 1.7 mg/dL 1.6-2.6 ALFREDA (test code = ALFREDA) Pressfitter ID Tomeka IVORY M Lab Interpretation (test code = 42139-8) Normal [facility]iumPhosphorus2020-08-12 05:36:00* Test Item Value Reference Range Interpretation Comments Phosphorus (test code = 2777-1) 2.7 mg/dL 2.3-4.7 ALFREDA (test code = ALFREDA) Pressfitter ID Tomeka IVORY M Lab Interpretation (test code = 30938-2) Normal [facility]iumPHOS[facility]US2020-08-12 05:36:00* Test Item Value Reference Range Interpretation Comments PHOSPHORUS (BEAKER) (test code = 604) 2.7 mg/dL 2.3-4.7 Pressfitter ID - CACHORRO [id number] 05:36:00* Test Item Value Reference Range Interpretation Comments MAGNESIUM (BEAKER) (test code = 627) 1.7 mg/dL 1.6-2.6 Pressfitter ID - CACHORRO MBASIC METABOLIC [id number] 05:36:00* Test Item Value Reference Range Interpretation Comments SODIUM (BEAKER) (test code = 381) 141 meq/L 136-145 POTASSIUM (BEAKER) (test code = 379) 3.9 meq/L 3.5-5.1 CHLORIDE (BEAKER) (test code = 382) 109 meq/L 98-107 H CO2 (BEAKER) (test code = 355) 26 meq/L 22-29 BLOOD UREA NITROGEN (BEAKER) (test code = 354) 15 mg/dL 7-21 CREATININE (BEAKER) (test code = 358) 0.93 mg/dL 0.57-1.25 GLUCOSE RANDOM (BEAKER) (test code = 652) 95 mg/dL 70-105 CALCIUM (BEAKER) (test code = 697) 8.6 mg/dL 8.4-10.2 EGFR (BEAKER) (test code = 1092) 97 mL/min/1.73 sq m ESTIMATED GFR IS NOT ACCURATE CREATININE CLEARANCE IN PREDICTING GLOMERULAR FILTRATION RATE. ESTIMATED GFR IS NOT APPLICABLE FOR DIALYSIS PATIENTS. Pressfitter ID - CACHORRO MCBC with platelet count + automated [id number] 05:12:00 * Test Item Value Reference Range Interpretation Comments WBC (test code = 6690-2) 6.7 3.5- 10.5 K/L RBC (test code = 789-8) 2.76 4.63- 6.08 M/L L MCHC (test code = 786-4) 32.8 32.3- 36.5 GM/DL L Hematocrit (test code = 4544-3) 25.9 % 40.1-51 L MCV (test code = 787-2) 93.8 fL 79-92.2 H MCH (test code = 785-6) 30.8 pg 25.7-32.2 RDW (test code = 788-0) 15.9 % 11.6-14.4 H Platelets (test code = 777-3) 174 150- 450 K/CU MM MPV (test code = 32241-3) 9.5 fL 9.4-12.4 nRBC (test code = 413) 0 0- 0 /100 WBC % Neutros (test code = 429) 62 % % Lymphs (test code = 430) 22 % % Monos (test code = 431) 10 % % Eos (test code = 432) 5 % % Baso (test code = 437) 0 % # Neutros (test code = 670) 4.19 1.78- 5.38 K/L # Lymphs (test code = 414) 1.48 1.32- 3.57 K/L # Monos (test code = 415) 0.65 0.30- 0.82 K/L # Eos (test code = 416) 0.36 0.04- 0.54 K/L # Baso (test code = 417) 0.02 0.01- 0.08 K/L Immature Granulocytes-Relative (test code = 2801) 0 % 0-1 Lab Interpretation (test code = 77081-1) [facility]O [id number] 05:12:00* Test Item Value Reference Range Interpretation Comments WHITE BLOOD CELL COUNT (BEAKER) (test code = 775) 6.7 K/ L 3.5- 10.5 RED BLOOD CELL COUNT (BEAKER) (test code = 761) 2.76 M/ L 4.63-6 .08 L HEMOGLOBIN (BEAKER) (test code = 410) 8.5 GM/DL 13.7-17.5 L HEMATOCRIT (BEAKER) (test code = 411) 25.9 % 40.1-51.0 L MEAN CORPUSCULAR VOLUME (BEAKER) (test code = 753) 93.8 fL 79. 0-92.2 H MEAN CORPUSCULAR HEMOGLOBIN (BEAKER) (test code = 751) 30.8 pg 25.7-32.2 MEAN CORPUSCULAR HEMOGLOBIN CONC (BEAKER) (test code = 752) 32.8 GM/DL 32.3-36.5 RED CELL DISTRIBUTION WIDTH (BEAKER) (test code = 412) 15.9 % 11.6-14.4 H PLATELET COUNT (BEAKER) (test code = 756) 174 K/CU MM 150-450 MEAN PLATELET VOLUME (BEAKER) (test code = 754) 9.5 fL 9.4-12 .4 NUCLEATED RED BLOOD CELLS (BEAKER) (test code = 413) 0 /100 WBC 0 -0 NEUTROPHILS RELATIVE PERCENT (BEAKER) (test code = 429) 62 % LYMPHOCYTES RELATIVE PERCENT (BEAKER) (test code = 430) 22 % MONOCYTES RELATIVE PERCENT (BEAKER) (test code = 431) 10 % EOSINOPHILS RELATIVE PERCENT (BEAKER) (test code = 432) 5 % BASOPHILS RELATIVE PERCENT (BEAKER) (test code = 437) 0 % NEUTROPHILS ABSOLUTE COUNT (BEAKER) (test code = 670) 4.19 K/ L 1.78-5.38 LYMPHOCYTES ABSOLUTE COUNT (BEAKER) (test code = 414) 1.48 K/ L 1.32-3.57 MONOCYTES ABSOLUTE COUNT (BEAKER) (test code = 415) 0.65 K/ L 0. 30-0.82 EOSINOPHILS ABSOLUTE COUNT (BEAKER) (test code = 416) 0.36 K/ L 0.04-0.54 BASOPHILS ABSOLUTE COUNT (BEAKER) (test code = 417) 0.02 K/ L 0. 01-0.08 IMMATURE GRANULOCYTES-RELATIVE PERCENT (BEAKER) (test code = 2801) 0 % 0-1 CBC W/PLT COUNT & AUTO [id number] 05:28:00* Test Item Value Reference Range Interpretation Comments WHITE BLOOD CELL COUNT (BEAKER) (test code = 775) 7.1 K/ L 3.5- 10.5 RED BLOOD CELL COUNT (BEAKER) (test code = 761) 2.96 M/ L 4.63-6 .08 L HEMOGLOBIN (BEAKER) (test code = 410) 8.9 GM/DL 13.7-17.5 L HEMATOCRIT (BEAKER) (test code = 411) 27.4 % 40.1-51.0 L MEAN CORPUSCULAR VOLUME (BEAKER) (test code = 753) 92.6 fL 79. 0-92.2 H MEAN CORPUSCULAR HEMOGLOBIN (BEAKER) (test code = 751) 30.1 pg 25.7-32.2 MEAN CORPUSCULAR HEMOGLOBIN CONC (BEAKER) (test code = 752) 32.5 GM/DL 32.3-36.5 RED CELL DISTRIBUTION WIDTH (BEAKER) (test code = 412) 15.9 % 11.6-14.4 H PLATELET COUNT (BEAKER) (test code = 756) 177 K/CU MM 150-450 MEAN PLATELET VOLUME (BEAKER) (test code = 754) 9.8 fL 9.4-12 .4 NUCLEATED RED BLOOD CELLS (BEAKER) (test code = 413) 0 /100 WBC 0 -0 NEUTROPHILS RELATIVE PERCENT (BEAKER) (test code = 429) 65 % LYMPHOCYTES RELATIVE PERCENT (BEAKER) (test code = 430) 23 % MONOCYTES RELATIVE PERCENT (BEAKER) (test code = 431) 8 % EOSINOPHILS RELATIVE PERCENT (BEAKER) (test code = 432) 4 % BASOPHILS RELATIVE PERCENT (BEAKER) (test code = 437) 0 % NEUTROPHILS ABSOLUTE COUNT (BEAKER) (test code = 670) 4.57 K/ L 1.78-5.38 LYMPHOCYTES ABSOLUTE COUNT (BEAKER) (test code = 414) 1.59 K/ L 1.32-3.57 MONOCYTES ABSOLUTE COUNT (BEAKER) (test code = 415) 0.55 K/ L 0. 30-0.82 EOSINOPHILS ABSOLUTE COUNT (BEAKER) (test code = 416) 0.30 K/ L 0.04-0.54 BASOPHILS ABSOLUTE COUNT (BEAKER) (test code = 417) 0.03 K/ L 0. 01-0.08 IMMATURE GRANULOCYTES-RELATIVE PERCENT (BEAKER) (test code = 2801) 0 % 0-1 [id number] 05:17:00* Test Item Value Reference Range Interpretation Comments PHOSPHORUS (BEAKER) (test code = 604) 3.1 mg/dL 2.3-4.7 Pressfitter ID - [id number] 05:17:00* Test Item Value Reference Range Interpretation Comments MAGNESIUM (BEAKER) (test code = 627) 1.6 mg/dL 1.6-2.6 Pressfitter ID - DBBASIC METABOLIC [id number] 05:17:00* Test Item Value Reference Range Interpretation Comments SODIUM (BEAKER) (test code = 381) 138 meq/L 136-145 POTASSIUM (BEAKER) (test code = 379) 3.5 meq/L 3.5-5.1 CHLORIDE (BEAKER) (test code = 382) 107 meq/L 98-107 CO2 (BEAKER) (test code = 355) 25 meq/L 22-29 BLOOD UREA NITROGEN (BEAKER) (test code = 354) 18 mg/dL 7-21 CREATININE (BEAKER) (test code = 358) 0.97 mg/dL 0.57-1.25 GLUCOSE RANDOM (BEAKER) (test code = 652) 110 mg/dL 70-105 H CALCIUM (BEAKER) (test code = 697) 8.3 mg/dL 8.4-10.2 L EGFR (BEAKER) (test code = 1092) 93 mL/min/1.73 sq m ESTIMATED GFR IS NOT ACCURATE CREATININE CLEARANCE IN PREDICTING GLOMERULAR FILTRATION RATE. ESTIMATED GFR IS NOT APPLICABLE FOR DIALYSIS PATIENTS. Pressfitter ID - DBSARS-CoV2/RT-PCR (Symptomatic ONLY)2020-06-10 23:17:00* Test Item Value Reference Range Interpretation Comments SARS-COV2/RT-PCR (test code = 42819-5) Negative N ot Detected, Negative, See external report for linked test SARS-COV-2 PERFORMING LAB (test code = 27142-4) [facility] ALFREDA (test code = ALFREDA) Negative results do not prec lude SARS-CoV-2 infection and should not be used as the sole basis for patient management decisions. Negative results must be combined with clinical observations, patient history, and epidemiological information. A false negative result may occur if a specimen is improperly collected, transported or handled. The limit of detection for this assay is 250 copies/mL. This SARS CoV-2 test is a rapid, real-time RT-PCR test intended for the qualitative detection of nucleic acid from SARS-CoV-2 in a nasopharyngeal swab specimen collected from individuals suspected of COVID-19 by their healthcare provider. This test has not been Food and Drug Administration (FDA) cleared or approved and has been authorized by FDA under an Emergency Use Authorization (EUA). This EUA will be effective until the declaration that circumstances exist justifying the authorization of the emergency use of in vitro diagnostic tests for detection and/or diagnosis of COVID-19 is terminated under Section 564(b)(2) of the Act or the EUA is revoked under Section 564(g) of the Act. Fact Sheet for Healthcare Providers:https://www.[employer]Documents/Xpert%20Xpress%20SARS%20CoV-2/Fact%2 0Sheets/302-3802%71ZIDU-GNW-9%20HEALTHCARE%20PROVIDERS%20FACT%20SHEET.pdf Fact Sheet for Healthcare Patients:https://www.[employer]Documents/Xpert%20Xpress%20SARS%20CoV-2/Fact%20 Sheets/3023801%84KVEZ-ANV-1%20PATIENT%20FACT%20SHEET.pdf Performing Laboratory:[address] [place], [place] [address]ARS-COV2/RT-PCR ([facility] REF [facility])2020-06-10 23:17:00* Test Item Value Reference Range Interpretation Comments SARS-COV2/RT-PCR (test code = 3686941) Negative N ot Detected, Negative, See external report for linked test SARS-COV-2 PERFORMING LAB (test code = 4943769) [facility] Negative results do not preclude SARS-CoV-2 infection and should not be used as the sole basis for patient management decisions. Negative results must be combin ed with clinical observations, patient history, and epidemiological information. A false negative result may occur if a specimen is improperly collected, transp orted or handled.The limit of detection for this assay is 250 copies/mL.This [facility] S CoV-2 test is a rapid, real-time RT-PCR test intended for the qualitative dete ction of nucleic acid from SARS-CoV-2 in a nasopharyngeal swab specimen collecte d from individuals suspected of COVID-19 by their healthcare provider.This test has not been Food and Drug Administration (FDA) cleared or approved and has been authorized by FDA under an Emergency Use Authorization (EUA). This EUA will be effective until the declaration that circumstances exist justifying the authoriz ation of the emergency use of in vitro diagnostic tests for detection and/or kobi gnosis of COVID-19 is terminated under Section 564(b)(2) of the Act or the EUA i s revoked under Section 564(g) of the Act.Fact Sheet for Healthcare Providers:ht tps://www.[employer]Documents/Xpert%20Xpress%20SARS%20CoV-2/Fact%20Sheets/302- 3802%78EEAW-PJY-5%20HEALTHCARE%20PROVIDERS%20FACT%20SHEET.pdfFact Sheet for Heal thcare Patients:https://www.[employer]Documents/Xpert%20Xpress%20SARS%20CoV-2/ Fact%20Sheets/302-3801%04GVRJ-LIY-7%20PATIENT%20FACT%20SHEET.pdfPerforming Labor atory:[facility] [place], [place] [address]WD, [id number] 13:12:00FINAL REPORT CT of the abdomen and pelvis, [...] measuring 2.2 cm. No biliary ductal dilatation. Gallbladder is normal. Spleen, pancreas and adrenal glands [...] right hip osteoarthritis. Impression: Markedly distended bladder, con taining heterogeneous hyperdensity centrally, likely representing hematoma, note the presence of an underlying mass lesion cannot be excluded based on this exam. Lnlr-vv-oyhpjyfr bilateral hydronephrosis and hydroureter. There are several s mall nonobstructive stones within the left kidney. Severe right hip osteoarthrit is. Signed: Sara Logan MDReport Verified Date/Time: 06/10/2020 13:12:59 Reading L ocation: [facility] B1 C013X Ortho Consult Reading Room abdomen pelvis with IV contrast 2020-06-10 13:12:00Interface, External Ris In - 06/10/2020 1:[address] of the abdomen and pelvis, [...] measuring 2.2 cm. No biliary ductal dilatation. Gallbladder is normal. Spleen, pancreas and adrenal glands are normal. There is mild to moderate bilateral hydronephrosis and hydroureter. There are a few nonobstructive stones within the left kidney, measuring up to 4 mm. Bladder is distended, and contains internal hyperdensity that likely represents hemorrhage, although an underlying lesion cannot be excluded. Prostate gland is markedly enlarged. No bowel obstruction, or abnormal bowel wa ll thickening. Normal appendix. No ascites, free air, or lymphadenopathy. Osseou s structures demonstrate degenerative changes. There is severe right hip osteoar thritis. Impression: Markedly distended bladder, containing heterogeneous hyperd ensity centrally, likely representing hematoma, note the presence of an underlyi ng mass lesion cannot be excluded based on this exam. Aqdv-oy-pathobbv bilateral hydronephrosis and hydroureter. There are several small nonobstructive stones w ithin the left kidney. Severe right hip osteoarthritis. Signed: Sara Loganepor t Verified Date/Time: 06/10/2020 13:12:59 Reading Location: [facility] C013X Ortho Consult Reading Room Electronically signed by: SARA LOGAN M.D. on 020 01:12 PM [facility] 2020-06-10 11:42:00* Test Item Value Reference Range Interpretation Comments Protein, Total (test code = 2885-2) 7.2 6.0- 8.3 gm/dL Specimen slightly hemolyzed Albumin (test code = 47346-7) 3.8 g/dL 3.5-5 Specimen slightly hemolyzed Alkaline Phosphatase (test code = 6768-6) 67 U/L 40-150 Total Bilirubin (test code = 1975-2) 0.3 mg/dL 0.2-1.2 Specimen slightly hemolyzed Sodium (test code = 2951-2) 135 meq/L 136-145 L Potassium (test code = 2823-3) 4.0 meq/L 3.5-5.1 Specimen slightly hemolyzed Chloride (test code = 2075-0) 105 meq/L 98-107 CO2 (test code = 8-9) 25 meq/L 22-29 BUN (test code = 3094-0) 21 mg/dL 7-21 Creatinine (test code = 2160-0) 1.10 mg/dL 0.57-1.25 Specimen slightly hemolyzed Glucose (test code = 2345-7) 130 mg/dL 70-105 H Calcium (test code = 43113-3) 8.8 mg/dL 8.4-10.2 AST (test code = 1920-8) 22 U/L 5-34 Spe cimen slightly hemolyzed ALT (test code = 1742-6) 11 U/L 6-55 Spe cimen slightly hemolyzed EGFR (test code = 33241-5) 80 mL/min/1.73 sq m ESTIMATED GFR IS NOT ACCURATE CREATININE CLEARANCE IN PREDICTING GLOMERULAR FILTRATION RATE. ESTIMATED GFR IS NOT APPLICABLE FOR DIALYSIS PATIENTS. ALFREDA (test code = ALFREDA) Pressfitter ID - DB Lab Interpretation (test code = 58030-6) [facility]normal [facility] [id number] 11:42:00* Test Item Value Reference Range Interpretation Comments TOTAL PROTEIN (BEAKER) (test code = 770) 7.2 gm/dL 6.0-8.3 Specimen slightly hemolyzed ALBUMIN (BEAKER) (test code = 1145) 3.8 g/dL 3.5-5.0 Specimen slightly hemolyzed ALKALINE PHOSPHATASE (BEAKER) (test code = 346) 67 U/L 40-150 BILIRUBIN TOTAL (BEAKER) (test code = 377) 0.3 mg/dL 0.2-1.2 Specimen slightly hemolyzed SODIUM (BEAKER) (test code = 381) 135 meq/L 136-145 L POTASSIUM (BEAKER) (test code = 379) 4.0 meq/L 3.5-5.1 Specimen slightly hemolyzed CHLORIDE (BEAKER) (test code = 382) 105 meq/L 98-107 CO2 (BEAKER) (test code = 355) 25 meq/L 22-29 BLOOD UREA NITROGEN (BEAKER) (test code = 354) 21 mg/dL 7-21 CREATININE (BEAKER) (test code = 358) 1.10 mg/dL 0.57-1.25 Specimen slightly hemolyzed GLUCOSE RANDOM (BEAKER) (test code = 652) 130 mg/dL 70-105 H CALCIUM (BEAKER) (test code = 697) 8.8 mg/dL 8.4-10.2 AST (SGOT) (BEAKER) (test code = 353) 22 U/L 5-34 Specimen slightly hemolyzed ALT (SGPT) (BEAKER) (test code = 347) 11 U/L 6-55 Specimen slightly hemolyzed EGFR (BEAKER) (test code = 1092) 80 mL/min/1.73 sq m ESTIMATED GFR IS NOT ACCURATE CREATININE CLEARANCE IN PREDICTING GLOMERULAR FILTRATION RATE. ESTIMATED GFR IS NOT APPLICABLE FOR DIALYSIS PATIENTS. Pressfitter ID - DBType and screen, automated ([facility] and [facility] only)2020-06-10 11:41:00* Test Item Value Reference Range Interpretation Comments ABO/RH AUTOMATED (BEAKER) (test code = 2260) O POSITIVE Ab Scrn (test code = 890-4) NEGATIVE [facility]inal[facility] w/[id number] 10:48:00* Test Item Value Reference Range Interpretation Comments Color, UA (test code = 5778-6) Dark Red Clarity, UA (test code = 5767-9) Cloudy Specific [place], UA (test code = 5811-5) 1.031 1.001-1.035 pH, UA (test code = 5803-2) 8.0 5.0-8.0 Protein, UA (test code = 01754-6) 300 mg/dL Negative A Glucose, UA (test code = 365) 100 mg/dL Negative A Ketones, UA (test code = 2514-8) 10 mg/dL Negative A Bilirubin, UA (test code = 59252-3) Positive Negative A Blood, UA (test code = 53688-7) Large Negative A Nitrite, UA (test code = 5802-4) Positive Negative A Leukocytes, UA (test code = 5799-2) Small Negative A Urobilinogen, UA (test code = 37530-9) 12.0 mg/dL 0.2-1 H RBC, UA (test code = 71329-1) 1000 /HPF WBC, UA (test code = 5821-4) 0 /HPF Specimen Source (test code = 2795) ALFREDA (test code = ALFREDA) Pressfitter ID - tech Lab Interpretation (test code = 38080-6) Abnormal [facility] W/ [id number] 10:48:00* Test Item Value Reference Range Interpretation Comments COLOR (BEAKER) (test code = 470) Dark Red CLARITY (BEAKER) (test code = 469) Cloudy SPECIFIC GRAVITY UA (BEAKER) (test code = 468) 1.031 1.001-1 .035 PH UA (BEAKER) (test code = 467) 8.0 5.0-8.0 PROTEIN UA (BEAKER) (test code = 464) 300 mg/dL Negative A GLUCOSE UA (BEAKER) (test code = 365) 100 mg/dL Negative A KETONES UA (BEAKER) (test code = 371) 10 mg/dL Negative A BILIRUBIN UA (BEAKER) (test code = 462) Positive Negative A BLOOD UA (BEAKER) (test code = 461) Large Negative A NITRITE UA (BEAKER) (test code = 465) Positive Negative A LEUKOCYTE ESTERASE UA (BEAKER) (test code = 466) Small Negat jeanie A UROBILINOGEN UA (BEAKER) (test code = 463) 12.0 mg/dL 0.2-1.0 H RBC UA (BEAKER) (test code = 519) 1000 /HPF WBC UA (BEAKER) (test code = 520) 0 /HPF SOURCE(BEAKER) (test code = 2795) Pressfitter ID - techCBC W/PLT COUNT & AUTO [id number] 10:44:00* Test Item Value Reference Range Interpretation Comments WHITE BLOOD CELL COUNT (BEAKER) (test code = 775) 7.3 K/ L 3.5- 10.5 RED BLOOD CELL COUNT (BEAKER) (test code = 761) 3.40 M/ L 4.63-6 .08 L HEMOGLOBIN (BEAKER) (test code = 410) 10.2 GM/DL 13.7-17.5 L HEMATOCRIT (BEAKER) (test code = 411) 31.9 % 40.1-51.0 L MEAN CORPUSCULAR VOLUME (BEAKER) (test code = 753) 93.8 fL 79. 0-92.2 H MEAN CORPUSCULAR HEMOGLOBIN (BEAKER) (test code = 751) 30.0 pg 25.7-32.2 MEAN CORPUSCULAR HEMOGLOBIN CONC (BEAKER) (test code = 752) 32.0 GM/DL 32.3-36.5 L RED CELL DISTRIBUTION WIDTH (BEAKER) (test code = 412) 15.7 % 11.6-14.4 H PLATELET COUNT (BEAKER) (test code = 756) 196 K/CU MM 150-450 MEAN PLATELET VOLUME (BEAKER) (test code = 754) 9.5 fL 9.4-12 .4 NUCLEATED RED BLOOD CELLS (BEAKER) (test code = 413) 0 /100 WBC 0 -0 NEUTROPHILS RELATIVE PERCENT (BEAKER) (test code = 429) 74 % LYMPHOCYTES RELATIVE PERCENT (BEAKER) (test code = 430) 17 % MONOCYTES RELATIVE PERCENT (BEAKER) (test code = 431) 6 % EOSINOPHILS RELATIVE PERCENT (BEAKER) (test code = 432) 2 % BASOPHILS RELATIVE PERCENT (BEAKER) (test code = 437) 0 % NEUTROPHILS ABSOLUTE COUNT (BEAKER) (test code = 670) 5.41 K/ L 1.78-5.38 H LYMPHOCYTES ABSOLUTE COUNT (BEAKER) (test code = 414) 1.24 K/ L 1.32-3.57 L MONOCYTES ABSOLUTE COUNT (BEAKER) (test code = 415) 0.46 K/ L 0. 30-0.82 EOSINOPHILS ABSOLUTE COUNT (BEAKER) (test code = 416) 0.11 K/ L 0.04-0.54 BASOPHILS ABSOLUTE COUNT (BEAKER) (test code = 417) 0.03 K/ L 0. 01-0.08 IMMATURE GRANULOCYTES-RELATIVE PERCENT (BEAKER) (test code = 2801) 0 % 0-1 CHEST 2 [id number] 18:30:00 [place] [address] Patient Name: MARIANNA BISHOP MR #: [id number] : 1950 Age/Sex: 69/M Req #: [id number] Adm Physician: Ordered by: NERISSA FARLEY MD Report #: [id number] Location: OR Room/Bed: Procedure: [id number] DX/CHEST 2 VIEWS Exam Date: 05/10/20 Exam Time: 1746 REPORT STATUS: Signed EXAMINATION: CHEST 2 VIEWS INDICATION: Preoperative evaluation of the lungs. COMPARISON: None FINDINGS: TUBES and LINES: None. LUNGS: Normal lung v olumes. Lungs are clear. No consolidations. PLEURA: No pleural effusion or pneumothorax. HEART AND MEDIASTINUM: The cardiomediastinal silhouette i s unremarkable. BONES AND SOFT TISSUES: No acute osseous lesion. Soft tissues are unremarkable. UPPER ABDOMEN: No free air under the diaphragm. IMPRESSION: Normal chest radiograph. Signed by: Norma Juarez MD on 05/10/2020 6:32 PM Dictated By: NORMA JUAREZ MD Electronic ally Signed By: NORMA JUAREZ MD on 05/10/201831 Transcribed By: CATRACHO on 0 05/10/201831 COPY TO: NERISSA FARLEY MD [id number] 12:50:00 RUN DATE: 08/16/18 [employer] PAGE 1 RUN TIME: 1250 Specimen Inqui ry RUN USER: INTERFACE PATIENT: MARIANNA BISHOP ACCT #: V [id number] LOC: [facility] U #: [id number] AGE/SX: 67/M ROOM: RE08/15/18REG DR: Logan Frnaco MD : 48 BED: DIS: STATUS: [facility] [place]: SPEC #: [id number] RECD: 08/15/18 STATUS: CARLOS BEARD #: [id number] CHAPIS: 08/15/18 DR: Logan Franco MD ENTERED: 08/15/18 SP TYPE: LIPOMA OTHR DR: Jose G Chang MD ORDERED: GROSS COPIES TO: Logan Franco MD [address] [place] [address] Jose G Chang MD [address] [place] [address] PROCEDURES: GROSS (08/16/18) TISSUES: 1. SPERMATIC CORD, NOS - LIPOMA 2. HYDROCELE CLINICAL HIS TORY COLLECTION DATE: 08/15/18 RIGHT INGUINAL HERNIA SURGICAL PROCED URE: REPAIR OF RIGHT INGUINAL HERNIA WITH MESH FINAL DIAGNOSIS Lipoma of spermatic cord, right, excision: FIBROADIPOSE TISSUE CONSISTENT WITH LIPOMA OF SPERMATIC CORD BENIGN LYMPH NODE NEGATIVE FOR MALIGNANC Y Hydrocele, right, excision: MESOTHELIAL- LINED LOOSE CONNECTIVE T ISSUE CONSISTENT WITH HYDROCELE NEGATIVE FOR MALIGNANCY SHIV/sm D [id number] CONTINUED ON NEXT PAGE --------- ---RUN DATE: 08/16/18 [facility] PAGE 2 RUN TIME: 1250 Specimen Inquiry RUN USER: INTERFACE SPEC #: [id number] PATIENT: CYNDIMARIANNA #[id number] (Continued) MACROSCOPIC The rst specimen is received in formalin, labeled with the patient's name, and alona ntified as "lipoma spermatic cord". The specimen consists of fatty tissue wit h some thin fibromembranous covering. It measures 5.3 x 2.2 x 1.1 cm. Sample s of the specimen are submitted for microscopic examination in cassette (1). The second specimen is received in formalin, labeled with the patient's nam e, and identified as "hydrocele". It consists of a [place] fibromembranous saccular portion of tissue measuring 4.7 x 1.8 x 0.5 cm. A sample of the spe cimen is submitted for microscopic examination in a single cassette. ARGELIA S PERFORMED AT [facility] [address] [place] [address] (p)[phone] MICROSCOPIC MICROSCOPIC P ERFORMED AT [facility] All of the stains, including any controls p erformed, stain appropriately. [facility] [address] [place] [address] (p)[phone] PERFORMING SITE Diagnosis perf ormed at: [facility] [address] [place] [address] Signed SIGNATURE ON Kelli Higgins 08/16/18 1250 END OF REPORT
[2020-09-19 16:14] LABS: BASOPHILS % 0.3 % (0.0-1.0); EOSINOPHILS # (AUTO) 0.1 (0.0-0.4); EOSINOPHILS % 0.8 % (0.0-6.0); HEMATOCRIT 28.5 % (38.2-49.6); LYMPHOCYTES # (AUTO) 1.1 (1.0-3.2); LYMPHOCYTES % 8.7 % (18.0-39.1); MEAN CORPUSCULAR HEMOGLOBIN 24.1 pg (28-32); MEAN CORPUSCULAR HGB CONC 31.6 g/dL (31-35); MEAN CORPUSCULAR VOLUME 76.4 fL (81-99); MONOCYTES # (AUTO) 0.9 (0.2-0.8); MONOCYTES % 6.8 % (4.4-11.3); NEUTROPHILS # (AUTO) 10.6 (2.1-6.9); NEUTROPHILS % 82.9 % (38.7-80.0); PLATELET COUNT 134 x10e3/uL (140-360); RED BLOOD COUNT 3.73 x10e6/uL (4.3-5.7); RED CELL DISTRIBUTION WIDTH 17.4 % (11.7-14.4)
[2020-09-19 16:34] LABS: ALANINE AMINOTRANSFERASE 9 IU/L (0-55); ALBUMIN 3.6 g/dL (3.5-5.0); ALBUMIN/GLOBULIN RATIO 0.9 (0.8-2.0); ALKALINE PHOSPHATASE 60 IU/L (40-150); BLOOD UREA NITROGEN 19 mg/dL (7-26); BUN/CREATININE RATIO 18 (6-25); CALCIUM 8.8 mg/dL (8.4-10.2); CARBON DIOXIDE 23 mmol/L (22-29); CHLORIDE 100 mmol/L (98-107); CREATININE, SERUM 1.04 mg/dL (0.72-1.25); EST GLOMERULAR FILTRATION RATE > 60 ML/MIN (60-); GLUCOSE 114 mg/dL (74-118); SODIUM 133 mmol/L (136-145)
[2020-09-19 16:47] LABS: BILIRUBIN,URINE LARGE (NEGATIVE); CLARITY,URINE TURBID (CLEAR); COLOR,URINE RED (YELLOW); KETONES,URINE 2+ (NEGATIVE); LEUKOCYTE ESTERASE ,URINE LARGE (NEGATIVE); NITRITE,URINE POSITIVE (NEGATIVE); PROTEIN,URINE DIPSTICK >=300 (NEGATIVE); URINE UROBILINOGEN 4 mg/dL (0.2 - 1)
[2020-09-19 16:57] LABS: BACTERIA,URINE FEW /HPF; RBC,URINE >50 /HPF (0-5)
[2020-09-19 17:07] VITALS: BP 134/76
== END 2020-09-19 17:08 | disposition home or self-care (01) ==
LOC: ER 15:30
DX: R55 Syncope and collapse (principal); I10 Essential (primary) hypertension
CPT/HCPCS: 36415; 80053; 81001; 85025; 87086; 93005; 99283

== ENCOUNTER → 2023-01-01 | Day surgery (SDC) | payer MEDICARE ==
[2022-12-30 08:57] LABS: BASOPHILS % 0.5 % (0.0-1.0); EOSINOPHILS # (AUTO) 0.2 (0.0-0.4); EOSINOPHILS % 5.2 % (0.0-6.0); HEMATOCRIT 45.3 % (38.2-49.6); LYMPHOCYTES # (AUTO) 1.5 (1.0-3.2); LYMPHOCYTES % 35.1 % (18.0-39.1); MEAN CORPUSCULAR HEMOGLOBIN 30.1 pg (28-32); MEAN CORPUSCULAR HGB CONC 33.1 g/dL (31-35); MEAN CORPUSCULAR VOLUME 90.8 fL (81-99); MONOCYTES # (AUTO) 0.3 (0.2-0.8); MONOCYTES % 6.9 % (4.4-11.3); NEUTROPHILS # (AUTO) 2.2 (2.1-6.9); NEUTROPHILS % 52.1 % (38.7-80.0); PLATELET COUNT 178 x10e3/uL (140-360); RED BLOOD COUNT 4.99 x10e6/uL (4.3-5.7); RED CELL DISTRIBUTION WIDTH 14.6 % (11.7-14.4)
[2022-12-30 09:22] LABS: ALBUMIN/GLOBULIN RATIO 0.9 (0.8-2.0); CALCIUM 9.1 mg/dL (8.4-10.2); CREATININE, SERUM 1.04 mg/dL (0.72-1.25)
[~2023-01-01] MED LIST changes: +Ampicillin INJ 1 GM Vial ONE; +DEXAMETHASONE SOD PHOS INJ 4 MG/ML SDV ONE; +FENTANYL CITRATE/PF 100MCG/2 ML INJ ONE; +GENTAMICIN 80MG/NS 100 ML 200 ML IV ONE; +LIDOCAINE HCL 2% LOCAL INJ 5 ML SDV VIAL INJ ONE; +ONDANSETRON HCL INJ 2MG/ML 2ML 2 MG/ML VIAL ONE; +POVIDONE IODINE 0.05% 0.05 % ML PO ONE; +PROPOFOL IV EMULSION 10 MG/ML 20 ML VIAL ONE; +SEVOFLURANE INHAL SOLN 250 ML PEN BTL ONE
[2023-01-01 10:13] VITALS: BP 148/90
== END | disposition home or self-care (01) ==
LOC: OR 05:22
PROVIDERS: ATTEND Urology
DX: N20.0 Calculus of kidney (principal); N40.0 Benign prostatic hyperplasia without lower urinary tract symptoms; Z98.890 Other specified postprocedural states; N32.89 Other specified disorders of bladder; I10 Essential (primary) hypertension; E78.5 Hyperlipidemia, unspecified; K21.9 Gastro-esophageal reflux disease without esophagitis; I25.10 Atherosclerotic heart disease of native coronary artery without angina pectoris; Z91.041 Radiographic dye allergy status; Z01.810 Encounter for preprocedural cardiovascular examination; Z01.812 Encounter for preprocedural laboratory examination; Z01.818 Encounter for other preprocedural examination; Z79.899 Other long term (current) drug therapy
CPT/HCPCS: 36415; 50590; 71046; 74018; 80053; 83970; 84550; 85025; 93005; C1758; J1100; J1580; J2001; J2405; J2704; J3010 ×2

== ENCOUNTER 2023-03-15 08:47 | Inpatient (IN) | payer MEDICARE ==
[2023-03-12 12:00] LABS: BASOPHILS % 0.7 % (0.0-1.0); EOSINOPHILS # (AUTO) 0.2 (0.0-0.4); EOSINOPHILS % 2.6 % (0.0-6.0); HEMATOCRIT 43.2 % (38.2-49.6); HEMOGLOBIN 14.5 g/dL (14.0-18.0); LYMPHOCYTES # (AUTO) 1.4 (1.0-3.2); LYMPHOCYTES % 22.7 % (18.0-39.1); MEAN CORPUSCULAR HGB CONC 33.6 g/dL (31-35); MEAN CORPUSCULAR VOLUME 89.4 fL (81-99); MONOCYTES # (AUTO) 0.4 (0.2-0.8); MONOCYTES % 6.7 % (4.4-11.3); NEUTROPHILS # (AUTO) 4.1 (2.1-6.9); NEUTROPHILS % 67.1 % (38.7-80.0); PLATELET COUNT 191 x10e3/uL (140-360); RED BLOOD COUNT 4.83 x10e6/uL (4.3-5.7); RED CELL DISTRIBUTION WIDTH 15.5 % (11.7-14.4)
[2023-03-12 12:45] LABS: ANION GAP 12.6 mmol/L (8-16); BLOOD UREA NITROGEN 19 mg/dL (7-26); BUN/CREATININE RATIO 18 (6-25); CALCIUM 9.4 mg/dL (8.4-10.2); CARBON DIOXIDE 26 mmol/L (22-29); CHLORIDE 106 mmol/L (98-107); CREATININE, SERUM 1.03 mg/dL (0.72-1.25); GLUCOSE 120 mg/dL (74-118); POTASSIUM 3.6 mmol/L (3.5-5.1); SODIUM 141 mmol/L (136-145)
[2023-03-15] VITALS (7 sets, daily range): BP systolic 103–126; BP diastolic 56–86; PULSE 61–83; RESP 17–21; TEMP 97.7–98.1; O2SAT 98–100
[~2023-03-15] VITALS: Ht 175.3 cm; Wt 90.7 kg
[~2023-03-15 08:47] MED LIST changes: +ACETAMINOPHEN 1000 MG/100 ML 100 ML IV ONE; -DEXAMETHASONE SOD PHOS INJ 4 MG/ML SDV ONE; -FENTANYL CITRATE/PF 100MCG/2 ML INJ ONE; +IOPAMIDOL 610MG/1ML 300 MG/ML VIAL IV ONE; -LIDOCAINE HCL 2% LOCAL INJ 5 ML SDV VIAL INJ ONE; -ONDANSETRON HCL INJ 2MG/ML 2ML 2 MG/ML VIAL ONE; -POVIDONE IODINE 0.05% 0.05 % ML PO ONE; -PROPOFOL IV EMULSION 10 MG/ML 20 ML VIAL ONE; -SEVOFLURANE INHAL SOLN 250 ML PEN BTL ONE; +SODIUM CHLORIDE 0.9% 1000ML 1,000 ML ONE
[2023-03-15] MEDS: FENTANYL CITRATE/PF 100MCG/2 ML INJ ONE ×2 (09:27→09:35)
[2023-03-15] MEDS ORDERED: ACETAMINOPHEN 1000 MG/100 ML IV PRN (09:30)
[2023-03-15] MEDS ORDERED: PHENAZOPYRIDINE HCL 100 MG TAB PO PRN (09:30)
[2023-03-15] MEDS ORDERED: DIPHENHYDRAMINE HCL 25 MG CAP PO PRN (09:30)
[2023-03-15] MEDS ORDERED: ONDANSETRON HCL INJ 2MG/ML 2ML 2 MG/ML VIAL IV PRN (09:30)
[2023-03-15] MEDS ORDERED: LABETALOL HCL 5 MG/ML 20ML VIAL IV ONE (09:40)
[2023-03-15] MEDS ORDERED: Morphine 2mg Syringe 2 MG/ML SYR ONE (10:20)
[2023-03-15] MEDS ORDERED: PHENAZOPYRIDINE HCL 100 MG TAB ONE (10:27)
[2023-03-15 10:32] LABS: BASOPHILS % 0.2 % (0.0-1.0); EOSINOPHILS # (AUTO) 0.2 (0.0-0.4); EOSINOPHILS % 1.8 % (0.0-6.0); HEMATOCRIT 41.3 % (38.2-49.6); HEMOGLOBIN 13.8 g/dL (14.0-18.0); LYMPHOCYTES # (AUTO) 1.1 (1.0-3.2); LYMPHOCYTES % 13.4 % (18.0-39.1); MEAN CORPUSCULAR HEMOGLOBIN 30.7 pg (28-32); MEAN CORPUSCULAR HGB CONC 33.4 g/dL (31-35); MEAN CORPUSCULAR VOLUME 91.8 fL (81-99); MONOCYTES # (AUTO) 0.2 (0.2-0.8); MONOCYTES % 1.9 % (4.4-11.3); NEUTROPHILS % 82.3 % (38.7-80.0); PLATELET COUNT 178 x10e3/uL (140-360); RED CELL DISTRIBUTION WIDTH 15.3 % (11.7-14.4)
[2023-03-15 10:54] LABS: ANION GAP 11.9 mmol/L (8-16); CALCIUM 8.6 mg/dL (8.4-10.2); CREATININE, SERUM 0.93 mg/dL (0.72-1.25); POTASSIUM 3.9 mmol/L (3.5-5.1)
[2023-03-15] MEDS: ACETAMINOPHEN/CODEINE 300MG - 30MG TAB PO PRN ×2 (11:45→16:52)
[2023-03-15] MEDS: D5.45%NS/KCL 20MEQ 1,000 ML IV SCH ×2 (11:46→16:53)
[2023-03-15 11:56] LABS: CHOL/HDL RATIO 3.7 (3.9-4.7)
[2023-03-15] MEDS ORDERED: FENTANYL CITRATE/PF 100MCG/2 ML INJ ONE (12:23)
[2023-03-15] MEDS ORDERED: DEXAMETHASONE SOD PHOS INJ 4 MG/ML SDV ONE (12:46)
[2023-03-15] MEDS ORDERED: PROPOFOL IV EMULSION 10 MG/ML 20 ML VIAL ONE (12:46)
[2023-03-15] MEDS ORDERED: EPHEDRINE SULFATE INJ 50 MG/ML VIAL ONE (12:46)
[2023-03-15] MEDS ORDERED: SEVOFLURANE INHAL SOLN 250 ML PEN BTL ONE (12:46)
[2023-03-15] MEDS ORDERED: ONDANSETRON HCL INJ 2MG/ML 2ML 2 MG/ML VIAL ONE (12:46)
[2023-03-15] MEDS ORDERED: POVIDONE IODINE 0.05% 0.05 % ML PO ONE (12:46)
[2023-03-15] MEDS ORDERED: LIDOCAINE HCL 2% LOCAL INJ 5 ML SDV VIAL INJ ONE (12:46)
[2023-03-15] MEDS: DOCUSATE SODIUM 100 MG CAP PO SCH (16:52)
[2023-03-16] VITALS (11 sets, daily range): BP systolic 103–147; BP diastolic 62–76; PULSE 66–77; RESP 17–21; TEMP 97.7–98.7; O2SAT 98–100
[2023-03-16] MEDS: D5.45%NS/KCL 20MEQ 1,000 ML IV SCH ×3 (02:11→15:37)
[2023-03-16 06:36] LABS: BASOPHILS % 0.4 % (0.0-1.0); EOSINOPHILS # (AUTO) 0.2 (0.0-0.4); EOSINOPHILS % 2.4 % (0.0-6.0); HEMATOCRIT 28.6 % (38.2-49.6); HEMOGLOBIN 9.5 g/dL (14.0-18.0); LYMPHOCYTES % 23.8 % (18.0-39.1); MEAN CORPUSCULAR HEMOGLOBIN 29.8 pg (28-32); MEAN CORPUSCULAR HGB CONC 33.2 g/dL (31-35); MEAN CORPUSCULAR VOLUME 89.7 fL (81-99); MONOCYTES # (AUTO) 0.7 (0.2-0.8); MONOCYTES % 7.8 % (4.4-11.3); NEUTROPHILS # (AUTO) 5.5 (2.1-6.9); NEUTROPHILS % 65.2 % (38.7-80.0); PLATELET COUNT 144 x10e3/uL (140-360); RED BLOOD COUNT 3.19 x10e6/uL (4.3-5.7); RED CELL DISTRIBUTION WIDTH 15.1 % (11.7-14.4)
[2023-03-16 07:03] LABS: ANION GAP 8.3 mmol/L (8-16); CALCIUM 7.9 mg/dL (8.4-10.2); CREATININE, SERUM 0.88 mg/dL (0.72-1.25); POTASSIUM 4.3 mmol/L (3.5-5.1)
[2023-03-16] MEDS: DOCUSATE SODIUM 100 MG CAP PO SCH ×2 (07:58→15:35)
[2023-03-16] MEDS: ACETAMINOPHEN/CODEINE 300MG - 30MG TAB PO PRN ×2 (07:59→15:35)
[2023-03-16] MEDS ORDERED: CEPACOL SORE THROAT LOZENGES PO PRN (09:45)
[2023-03-16] MEDS ORDERED: ONDANSETRON HCL 4 MG ORAL DISINTEGRATING TAB PO PRN (10:30)
[2023-03-17] VITALS (9 sets, daily range): BP systolic 115–154; BP diastolic 57–94; PULSE 65–74; RESP 17–18; TEMP 97.7–99; O2SAT 98–100
[2023-03-17] MEDS: D5.45%NS/KCL 20MEQ 1,000 ML IV SCH ×3 (04:11→18:02)
[2023-03-17 06:48] LABS: BASOPHILS # (AUTO) 0.1 (0.0-0.1); BASOPHILS % 0.7 % (0.0-1.0); EOSINOPHILS # (AUTO) 0.7 (0.0-0.4); EOSINOPHILS % 8.5 % (0.0-6.0); HEMATOCRIT 29.3 % (38.2-49.6); HEMOGLOBIN 9.6 g/dL (14.0-18.0); LYMPHOCYTES # (AUTO) 1.9 (1.0-3.2); MEAN CORPUSCULAR HEMOGLOBIN 30.1 pg (28-32); MEAN CORPUSCULAR HGB CONC 32.8 g/dL (31-35); MEAN CORPUSCULAR VOLUME 91.8 fL (81-99); MONOCYTES # (AUTO) 0.6 (0.2-0.8); MONOCYTES % 7.7 % (4.4-11.3); NEUTROPHILS # (AUTO) 4.9 (2.1-6.9); NEUTROPHILS % 59.7 % (38.7-80.0); PLATELET COUNT 178 x10e3/uL (140-360); RED BLOOD COUNT 3.19 x10e6/uL (4.3-5.7); RED CELL DISTRIBUTION WIDTH 15.6 % (11.7-14.4)
[2023-03-17 07:05] LABS: ANION GAP 10.3 mmol/L (8-16); CALCIUM 8.6 mg/dL (8.4-10.2); CREATININE, SERUM 0.8 mg/dL (0.72-1.25); POTASSIUM 4.3 mmol/L (3.5-5.1)
[2023-03-17] MEDS: ACETAMINOPHEN/CODEINE 300MG - 30MG TAB PO PRN ×2 (07:13→19:53)
[2023-03-17] MEDS: MELOXICAM 7.5 MG TAB PO SCH (09:30)
[2023-03-17] MEDS: DOCUSATE SODIUM 100 MG CAP PO SCH ×2 (09:30→18:01)
[2023-03-17] MEDS: BENAZEPRIL HCL 10 MG TAB PO SCH (09:30)
[2023-03-17] MEDS: AMLODIPINE BESYLATE 10 MG TAB PO SCH (09:31)
[2023-03-17] MEDS: PANTOPRAZOLE SOD 40 MG TABEC PO SCH (09:45)
[2023-03-18 00:25] VITALS: BP 107/70; PULSE 67; RESP 18; TEMP 98.5; O2SAT 100
[2023-03-18] MEDS: D5.45%NS/KCL 20MEQ 1,000 ML IV SCH ×2 (01:01→08:56)
[2023-03-18 04:00] VITALS: BP 122/70; PULSE 66; RESP 18; TEMP 98.2; O2SAT 98
[2023-03-18] MEDS: ACETAMINOPHEN/CODEINE 300MG - 30MG TAB PO PRN (05:08)
[2023-03-18 06:29] LABS: BASOPHILS % 0.6 % (0.0-1.0); EOSINOPHILS # (AUTO) 0.7 (0.0-0.4); EOSINOPHILS % 10.4 % (0.0-6.0); HEMATOCRIT 26.8 % (38.2-49.6); HEMOGLOBIN 9.1 g/dL (14.0-18.0); LYMPHOCYTES # (AUTO) 1.6 (1.0-3.2); MEAN CORPUSCULAR HEMOGLOBIN 30.5 pg (28-32); MEAN CORPUSCULAR VOLUME 89.9 fL (81-99); MONOCYTES # (AUTO) 0.5 (0.2-0.8); NEUTROPHILS # (AUTO) 3.7 (2.1-6.9); NEUTROPHILS % 56.7 % (38.7-80.0); PLATELET COUNT 167 x10e3/uL (140-360); RED BLOOD COUNT 2.98 x10e6/uL (4.3-5.7); RED CELL DISTRIBUTION WIDTH 15.4 % (11.7-14.4)
[2023-03-18 06:46] LABS: ANION GAP 10.3 mmol/L (8-16); CALCIUM 8.4 mg/dL (8.4-10.2); CREATININE, SERUM 0.83 mg/dL (0.72-1.25); POTASSIUM 4.3 mmol/L (3.5-5.1)
[2023-03-18 08:23] VITALS: BP 144/80; PULSE 62; RESP 17; TEMP 98.5; O2SAT 100
[2023-03-18 08:50] VITALS: BP 144/80; PULSE 62; RESP 17; TEMP 98.5; O2SAT 100
[2023-03-18] MEDS: DOCUSATE SODIUM 100 MG CAP PO SCH (09:14)
[2023-03-18] MEDS: PANTOPRAZOLE SOD 40 MG TABEC PO SCH (09:14)
[2023-03-18] MEDS: AMLODIPINE BESYLATE 10 MG TAB PO SCH (09:15)
[2023-03-18] MEDS: MELOXICAM 7.5 MG TAB PO SCH (09:15)
[2023-03-18] MEDS: BENAZEPRIL HCL 10 MG TAB PO SCH (09:15)
[2023-03-18 13:23] VITALS: BP 140/87; PULSE 73; RESP 17; TEMP 98.3; O2SAT 100
[2023-03-18] MEDS ORDERED: LEVOFLOXACIN250 MG PO (13:47)
== END 2023-03-18 13:56 | disposition home or self-care (01) | DRG 714 ==
LOC: OR 08:47 → PACU V 09:26 → MED/SURG 10:38
PROVIDERS: ADMIT Internal Medicine; ATTEND Internal Medicine
PROC: 0VT08ZZ Resection of Prostate, Via Natural or Artificial Opening Endoscopic (ICD-10-PCS; principal; 2023-03-15 07:12)
DX: N40.1 Benign prostatic hyperplasia with lower urinary tract symptoms (principal); R35.1 Nocturia; R33.9 Retention of urine, unspecified; I10 Essential (primary) hypertension; E78.5 Hyperlipidemia, unspecified; I25.10 Atherosclerotic heart disease of native coronary artery without angina pectoris; K42.9 Umbilical hernia without obstruction or gangrene; Z20.822 Contact with and (suspected) exposure to COVID-19
CPT/HCPCS: 0223U; 36415; 71046; 74176; 74420; 80048; 80061; 83036; 83735; 85025; 88304; 88305; 93005; 94799; C1758; J0696; J1100; J1580; J2001; J2270; J2405; J7030

== ENCOUNTER → 2023-09-08 | Day surgery (SDC) | payer MEDICARE ==
[2023-09-07 11:55] LABS: ALBUMIN/GLOBULIN RATIO 1.1 (0.8-2.0); ANION GAP 13.8 mmol/L (8-16); BILIRUBIN,TOTAL 0.6 mg/dL (0.2-1.2); CALCIUM 8.9 mg/dL (8.4-10.2); CREATININE, SERUM 1.01 mg/dL (0.72-1.25); POTASSIUM 3.8 mmol/L (3.5-5.1); TOTAL PROTEIN 7.8 g/dL (6.5-8.1); URIC ACID 5.3 mg/dL (4.8-8.0)
[~2023-09-08] MED LIST changes: -ACETAMINOPHEN 1000 MG/100 ML 100 ML IV ONE; -Ampicillin INJ 1 GM Vial ONE; +CEFTRIAXONE 1 GM VIAL ONE; +CRESTOR10 MG PO; +DEXAMETHASONE SOD PHOS INJ 4 MG/ML SDV ONE; +EPHEDRINE SULFATE INJ 50 MG/ML VIAL ONE; +FENTANYL CITRATE/PF 100MCG/2 ML INJ ONE; +FINASTERIDE5 MG PO; -GENTAMICIN 80MG/NS 100 ML 200 ML IV ONE; +LACTATED RINGER'S 1,000 ML ONE; +LEVOFLOXACIN250 MG PO; +LIDOCAINE HCL 2% LOCAL INJ 5 ML SDV VIAL INJ ONE; +ONDANSETRON HCL INJ 2MG/ML 2ML 2 MG/ML VIAL ONE; +PHENAZOPYRIDINE HCL 100 MG TAB ONE; +PREVACID30 MG PO; +PROPOFOL IV EMULSION 10 MG/ML 20 ML VIAL ONE; +SEVOFLURANE INHAL SOLN 250 ML PEN BTL ONE; -SODIUM CHLORIDE 0.9% 1000ML 1,000 ML ONE
[2023-09-08 05:13] LABS: CALCIUM 9.1 mg/dL (8.6-10.2)
[2023-09-08 06:37] LABS: BASOPHILS % 0.7 % (0.0-1.0); EOSINOPHILS # (AUTO) 0.4 (0.0-0.4); EOSINOPHILS % 9.2 % (0.0-6.0); HEMATOCRIT 37.5 % (38.2-49.6); HEMOGLOBIN 12.7 g/dL (14.0-18.0); LYMPHOCYTES # (AUTO) 1.3 (1.0-3.2); LYMPHOCYTES % 32.9 % (18.0-39.1); MEAN CORPUSCULAR HEMOGLOBIN 29.3 pg (28-32); MEAN CORPUSCULAR HGB CONC 33.9 g/dL (31-35); MEAN CORPUSCULAR VOLUME 86.4 fL (81-99); MONOCYTES # (AUTO) 0.3 (0.2-0.8); MONOCYTES % 8.2 % (4.4-11.3); NEUTROPHILS % 48.8 % (38.7-80.0); PLATELET COUNT 186 x10e3/uL (140-360); RED BLOOD COUNT 4.34 x10e6/uL (4.3-5.7); WHITE BLOOD COUNT 4.01 x10e3/uL (4.8-10.8)
[2023-09-08 10:45] VITALS: BP 168/86; PULSE 66; RESP 18; O2SAT 99
== END | disposition home or self-care (01) ==
LOC: OR 05:29
PROVIDERS: ATTEND Urology
DX: N20.1 Calculus of ureter (principal); N13.30 Unspecified hydronephrosis; N21.0 Calculus in bladder; Z90.5 Acquired absence of kidney; N13.8 Other obstructive and reflux uropathy; Z85.528 Personal history of other malignant neoplasm of kidney; I10 Essential (primary) hypertension; E78.5 Hyperlipidemia, unspecified; G89.29 Other chronic pain; Z91.041 Radiographic dye allergy status; Z01.810 Encounter for preprocedural cardiovascular examination; Z01.812 Encounter for preprocedural laboratory examination; Z01.818 Encounter for other preprocedural examination; Z79.1 Long term (current) use of non-steroidal anti-inflammatories (NSAID); Z79.899 Other long term (current) drug therapy
CPT/HCPCS: 36415; 52356; 71046; 74018; 74420; 80053; 83970; 84550; 85025; 88300; 93005; C1758 ×2; C1769; C2617; J0696; J1100; J2001; J2405; J2704; J3010; J7121; Q9967

== ENCOUNTER → 2024-08-01 | Outpatient (REF) | payer MEDICARE ==
[~2024-08-01] MED LIST changes: -CEFTRIAXONE 1 GM VIAL ONE; +COLACE100 M1 PO; -DEXAMETHASONE SOD PHOS INJ 4 MG/ML SDV ONE; -EPHEDRINE SULFATE INJ 50 MG/ML VIAL ONE; -FENTANYL CITRATE/PF 100MCG/2 ML INJ ONE; +FEROSUL325 MG PO; -IOPAMIDOL 610MG/1ML 300 MG/ML VIAL IV ONE; -LACTATED RINGER'S 1,000 ML ONE; -LIDOCAINE HCL 2% LOCAL INJ 5 ML SDV VIAL INJ ONE; -ONDANSETRON HCL INJ 2MG/ML 2ML 2 MG/ML VIAL ONE; -PHENAZOPYRIDINE HCL 100 MG TAB ONE; -PROPOFOL IV EMULSION 10 MG/ML 20 ML VIAL ONE; -SEVOFLURANE INHAL SOLN 250 ML PEN BTL ONE; +ZINC PO
== END ==
LOC: CT 15:21
PROVIDERS: ATTEND Urology
DX: N20.0 Calculus of kidney (principal)
CPT/HCPCS: 74176

== ENCOUNTER → 2025-08-27 | Outpatient (REF) | payer MEDICARE ==
[~2025-08-27] MED LIST changes: +IOPAMIDOL 370 MG/ML 100 ML INFUS..BTL INJ ONE; +SODIUM CHLORIDE 0.9% 250ML 250 ML ONE
[2025-08-27 13:12] LABS: EST GLOMERULAR FILTRATION RATE 83.0 ML/MIN (>=60)
== END ==
LOC: CT 11:51
PROVIDERS: ATTEND Urology
DX: C64.2 Malignant neoplasm of left kidney, except renal pelvis (principal); N20.0 Calculus of kidney; R31.21 Asymptomatic microscopic hematuria
CPT/HCPCS: 36415; 74178; 82565; 84520; J7050; Q9967